=== PATIENT | female | born 1940 | race Caucasian/White ===

== ENCOUNTER → 2023-02-17 10:06 | Outpatient (REF) | payer OTHER, SELFPAY | LOC: WOUND 10:06 | PROVIDERS: ATTENDING PHYSICIAN Surgery; REFERRING PHYSICIAN Student in an Organized Health Care Education/Training Program | DX: I87.312 Chronic venous hypertension (idiopathic) with ulcer of left lower extremity (principal); L97.822 Non-pressure chronic ulcer of other part of left lower leg with fat layer exposed; I87.2 Venous insufficiency (chronic) (peripheral); I73.9 Peripheral vascular disease, unspecified; I48.0 Paroxysmal atrial fibrillation; Z79.01 Long term (current) use of anticoagulants; R26.2 Difficulty in walking, not elsewhere classified; R33.9 Retention of urine, unspecified | CPT/HCPCS: 11042; 11045; 99202; 99204 ==

== ENCOUNTER 2023-11-28 14:14 | Observation (INO) | payer OTHER, SELFPAY ==
--- NOTE | 2023-11-27 15:58 | ED.GENMED ---
History of Present Illness
<Carie Silvestre PA-C - Last Filed: 11/30/23 12:17>
General
Chief Complaint: Musculo-Skeletal Complaint
Source: patient
Exam Limitations: none
Time Seen by Provider: 11/27/23 15:56
Nursing documentation reviewed up to this point in time: agreed with
Travel History
Have you had any contact with someone who has COVID-19?: No
Do you have any symptoms of coronavirus? Fever > 100 degrees, chills, cough, shortness of breath, sore throat, loss of taste or smell, muscle aches, or headache?: No
History of Present Illness
History of Present Illness:
83-year-old female with past medical history of A-fib on Eliquis, hypertension, hyperlipidemia presenting to the emergency department today with hematuria, left knee pain and left shoulder pain. Patient states that she has had left knee pain left
shoulder pain for the past few weeks that is gotten so bad that she can barely walk without significant pain. She walks with a walker at baseline but today she had to be escorted on a wheelchair into the ER. Patient denies a hx of falls or trauma.
Patient and daughter states that they were going to follow-up with their family doctor with these concerns however last night, she started develop hematuria which ultimately prompted her ER visit today. Daughter states that when she was emptying
patients bedpain, she noticed bright red blood. She also noticed a few dark bloody spots on her underwear but she denies dysuria, abdominal pain, flank pain, fevers or chills, nausea or vomiting. Denies vaginal pain. She never had anything like this
before.
Past History
<Carie Silvestre PA-C - Last Filed: 11/30/23 12:17>
Past History
ED Past Medical History: Arrthythmia, GERD, HTN, Hypothyroidism and Other
ED Past Surgical History: None
Patient has exhibited threatening behavior?: No
PSI?: No
Social History
Tobacco: Former smoker
Alcohol: None
Drug: None
Living: with family ([place] [facility] since recent admission)
Review of Systems
<Carie Silvestre PA-C - Last Filed: 11/30/23 12:17>
Review of Systems
All Other Systems: ROS reviewed and negative except as documented in HPI and ROS
Phy Exam
<Carie Silvestre PA-C - Last Filed: 11/30/23 12:17>
Physical Exam
Physical Exam:
General: Patient is well appearing and in no acute distress; non-toxic
Skin: Warm and dry, no rashes or lesions
Head: Normocephalic, atraumatic
Eyes: Sclera non-icteric. EOMs intact.
Cardiac: Regular rate and rhythm, no murmurs
Peripheral Vascular: B/l lower extremity edema
Pulm: Normal respiratory effort
Abdomen: No abdominal tenderness, no palpable masses.
Musculoskeletal: Left knee swelling, left knee pain with passive range of motion. No left shoulder tenderness to palpation. Left shoulder pain with abduction. No palpable deformities.
Neuro: CN II-XII intact, no focal neurologic deficits.
Psychiatric: Appropriate mood and affect.
Course
<Carie Slivestre PA-C - Last Filed: 11/30/23 12:17>
Orders/Labs/Results
Orders:
Orders
11/27/23 16:24
CT Abd/pel Without Iv Or Oral Urgent
Comment:
Reason For Exam: gross hematuria
Acetaminophen [Tylenol] 650 mg PO NOW STA
CR Knee - Left 1 Or 2 Views Urgent
Comment:
Reason For Exam: left knee pain
CR Shoulder, Trauma - Left Urgent
Reason For Exam: left shoulder pain
11/27/23 16:30
Complete Blood Count/With Diff Urgent
Comprehensive Metabolic Panel Urgent
11/27/23 19:42
Urinalysis Reflex To Culture Urgent
Date Specimen was Collected: 11/27/23
Time Specimen was Collected: 19:41
Urine Culture Urgent
EULALIA Source: U
Specimen Description:
Date Specimen was Collected: 11/27/23
Time Specimen was Collected: 19:41
11/27/23 20:13
Acetaminophen [Tylenol] 650 mg .ROUTE .STK-MED ONE
11/27/23 20:46
Cefdinir [Omnicef] 300 mg PO NOW STA
Furosemide [Lasix] 40 mg PO NOW STA
11/27/23 20:56
Case Management Consult ONCE
Case Management Consult: VN/Home Care
11/28/23 Breakfast
Cholesterol Lowering
At Your Request: Full Participation
Does patient need a safe tray?: No
Cholesterol Lowering: Sodium, 2 Gram
11/28/23 07:06
PT Consult [Pt Eval And Treat] Urgent
Activity Level: Ambulate
11/28/23 08:53
Apixaban [Eliquis] 2.5 mg PO NOW STA
Furosemide [Lasix] 40 mg PO NOW STA
Metoprolol [Lopressor] 25 mg PO NOW STA
11/28/23 08:59
Cefdinir [Omnicef] 300 mg PO NOW STA
11/28/23 13:45
Admit/Transfer Patient As Directed
Co-Sign Provider:
Level of Care: Observation services
Assign to:: Medical/Surgical
Physician / Group: pasricha/medicine
Diagnosis: uti, ambulatory dysfunction
11/28/23 13:47
Code Status As Directed
Resuscitation Status: Full Code
11/28/23 18:14
Bisacodyl [Dulcolax] 10 mg RECTAL [id number] PRN
Docusate W/Senna [Senokot-S] 1 tablet PO BIDPRN PRN
Escitalopram Oxalate [Lexapro] 5 mg PO HSPRN PRN
Ibuprofen [Motrin] 400 mg PO BIDPRN PRN
Loratadine [Claritin] 10 mg PO DAILY PRN
Polyethylene Glycol Powder [Miralax] 17 grams PO DAILYPRN PRN
11/28/23 18:14
Activity As Directed
Activity Level: As Tolerated
Pneumatic Compression Sleeves As Directed
Type: Knee high
Vital Signs As Directed
Frequency: Per unit guidelines
Ot Eval And Treat Routine
DX Deep Vein Thrombosis Video Routine
11/28/23 20:00
Acetaminophen [Tylenol] 1,000 mg PO BID
Apixaban [Eliquis] 2.5 mg PO BID
CefTRIAXone [Rocephin] 1,000 mg IV Q24H
Docusate Sodium [Colace] 100 mg PO BID
Furosemide [Lasix] 40 mg PO BID
11/29/23 06:00
Levothyroxine [Synthroid] 25 mcg PO DAILY@0600
11/29/23 06:40
Complete Blood Count/No Diff IN AM
Comprehensive Metabolic Panel IN AM
TSH IN AM
11/29/23 08:00
Atorvastatin [Lipitor] 10 mg PO DAILY
Escitalopram Oxalate [Lexapro] 5 mg PO DAILY
Metoprolol [Lopressor] 25 mg PO DAILY
Multivitamin [Theragran] 1 tablet PO DAILY
Pantoprazole [Protonix] 20 mg PO DAILY
Abnormal Lab Results
11/27/23 11/27/23
16:30 19:42
Hgb 10.7 L g/dL
(12.0-16.0)
Hct 33.7 L %
(37.0-47.0)
MCV 77.6 L fL
(81.0-99.0)
MCH 24.7 L pg
(27.0-31.0)
MCHC 31.8 L g/dL
(33.0-37.0)
RDW 15.7 H %
(11.5-14.5)
Chloride 111 H mmol/L
(98-107)
Carbon Dioxide 19 L mmol/L
(22-30)
BUN 24 H mg/dl
(7-17)
Glucose 132 H mg/dl
(70-99)
Total Protein 6.1 L g/dl
(6.3-8.2)
Albumin 3.2 L g/dl
(3.5-5.0)
Ur Occult Blood Reflex 4+ A
(Negative)
Urine Nitrite (Reflex) Positive A
(Negative)
Leukocyte Esterase Rfl 1+ A
(Negative)
Urine Albumin (Reflex) 1+ A
(Neg - Trace)
11/27/23 16:30
11/27/23 16:30
Vital Signs
Initial and Last Documented VS:
Initial Vital Signs
Temp Pulse Resp Pulse Ox
98.1 F 96 20 99
11/27/23 14:55 11/27/23 14:55 11/27/23 14:55 11/27/23 14:55
Last Documented Vital Signs
Temp Pulse Resp BP Pulse Ox
97.8 F 82 17 121/76 98
11/30/23 07:30 11/30/23 07:30 11/30/23 07:30 11/30/23 08:32 11/30/23 07:30
<Georgi Avalos MD - Last Filed: 11/28/23 10:30>
Orders/Labs/Results
Orders:
Orders
11/27/23 16:24
CT Abd/pel Without Iv Or Oral Urgent
Comment:
Reason For Exam: gross hematuria
Acetaminophen [Tylenol] 650 mg PO NOW STA
CR Knee - Left 1 Or 2 Views Urgent
Comment:
Reason For Exam: left knee pain
CR Shoulder, Trauma - Left Urgent
Reason For Exam: left shoulder pain
11/27/23 16:30
Complete Blood Count/With Diff Urgent
Comprehensive Metabolic Panel Urgent
11/27/23 19:42
Urinalysis Reflex To Culture Urgent
Date Specimen was Collected: 11/27/23
Time Specimen was Collected: 19:41
Urine Culture Urgent
EULALIA Source: U
Specimen Description:
Date Specimen was Collected: 11/27/23
Time Specimen was Collected: 19:41
11/27/23 20:13
Acetaminophen [Tylenol] 650 mg .ROUTE .STK-MED ONE
11/27/23 20:46
Cefdinir [Omnicef] 300 mg PO NOW STA
Furosemide [Lasix] 40 mg PO NOW STA
11/27/23 20:56
Case Management Consult ONCE
Case Management Consult: VN/Home Care
11/28/23 Breakfast
Cholesterol Lowering
At Your Request: Full Participation
Does patient need a safe tray?: No
Cholesterol Lowering: Sodium, 2 Gram
11/28/23 07:06
PT Consult [Pt Eval And Treat] Urgent
Activity Level: Ambulate
11/28/23 08:53
Apixaban [Eliquis] 2.5 mg PO NOW STA
Furosemide [Lasix] 40 mg PO NOW STA
Metoprolol [Lopressor] 25 mg PO NOW STA
11/28/23 08:59
Cefdinir [Omnicef] 300 mg PO NOW STA
11/28/23 13:45
Admit/Transfer Patient As Directed
Co-Sign Provider:
Level of Care: Observation services
Assign to:: Medical/Surgical
Physician / Group: pasricha/medicine
Diagnosis: uti, ambulatory dysfunction
11/28/23 13:47
Code Status As Directed
Resuscitation Status: Full Code
11/28/23 18:14
Bisacodyl [Dulcolax] 10 mg RECTAL [id number] PRN
Docusate W/Senna [Senokot-S] 1 tablet PO BIDPRN PRN
Escitalopram Oxalate [Lexapro] 5 mg PO HSPRN PRN
Ibuprofen [Motrin] 400 mg PO BIDPRN PRN
Loratadine [Claritin] 10 mg PO DAILY PRN
Polyethylene Glycol Powder [Miralax] 17 grams PO DAILYPRN PRN
11/28/23 18:14
Activity As Directed
Activity Level: As Tolerated
Pneumatic Compression Sleeves As Directed
Type: Knee high
Vital Signs As Directed
Frequency: Per unit guidelines
Ot Eval And Treat Routine
DX Deep Vein Thrombosis Video Routine
11/28/23 20:00
Acetaminophen [Tylenol] 1,000 mg PO BID
Apixaban [Eliquis] 2.5 mg PO BID
CefTRIAXone [Rocephin] 1,000 mg IV Q24H
Docusate Sodium [Colace] 100 mg PO BID
Furosemide [Lasix] 40 mg PO BID
11/29/23 06:00
Levothyroxine [Synthroid] 25 mcg PO DAILY@0600
11/29/23 06:40
Complete Blood Count/No Diff IN AM
Comprehensive Metabolic Panel IN AM
TSH IN AM
11/29/23 08:00
Atorvastatin [Lipitor] 10 mg PO DAILY
Escitalopram Oxalate [Lexapro] 5 mg PO DAILY
Metoprolol [Lopressor] 25 mg PO DAILY
Multivitamin [Theragran] 1 tablet PO DAILY
Pantoprazole [Protonix] 20 mg PO DAILY
Abnormal Lab Results
11/27/23 11/27/23
16:30 19:42
Hgb 10.7 L g/dL
(12.0-16.0)
Hct 33.7 L %
(37.0-47.0)
MCV 77.6 L fL
(81.0-99.0)
MCH 24.7 L pg
(27.0-31.0)
MCHC 31.8 L g/dL
(33.0-37.0)
RDW 15.7 H %
(11.5-14.5)
Chloride 111 H mmol/L
(98-107)
Carbon Dioxide 19 L mmol/L
(22-30)
BUN 24 H mg/dl
(7-17)
Glucose 132 H mg/dl
(70-99)
Total Protein 6.1 L g/dl
(6.3-8.2)
Albumin 3.2 L g/dl
(3.5-5.0)
Ur Occult Blood Reflex 4+ A
(Negative)
Urine Nitrite (Reflex) Positive A
(Negative)
Leukocyte Esterase Rfl 1+ A
(Negative)
Urine Albumin (Reflex) 1+ A
(Neg - Trace)
11/27/23 16:30
11/27/23 16:30
Vital Signs
Initial and Last Documented VS:
Initial Vital Signs
Temp Pulse Resp Pulse Ox
98.1 F 96 20 99
11/27/23 14:55 11/27/23 14:55 11/27/23 14:55 11/27/23 14:55
Last Documented Vital Signs
Temp Pulse Resp BP Pulse Ox
97.8 F 82 17 121/76 98
11/30/23 07:30 11/30/23 07:30 11/30/23 07:30 11/30/23 08:32 11/30/23 07:30
Rileylt;Carie Silvestre PA-C - Last Filed: 11/30/23 12:17>
MDM/Problems Addressed
Differential Diagnosis Includes:
Eliquis side effect, hemorrhagic cystitis, nephrolithiasis, bladder carcinoma, renal carcinoma, ureteral stricture, bladder stone,
MDM/Problems Addressed:
hematuria
left shoulder and left knee pain
Chronic conditions affecting care:
A-fib on Eliquis, hypertension, hyperlipidemia, GERD, hypothyroidism,
Acute Exacerbation and/or Progression of Chronic Illness:
A-fib on Eliquis, hypertension, hyperlipidemia, GERD, hypothyroidism,
<Carie Silvestre PA-C - Last Filed: 11/30/23 12:17>
*Critical Care Note
Total Time (30-74mins, 75-104mins- exclusive of procedures): Not Applicable
<Georgi Avalos MD - Last Filed: 11/28/23 10:30>
*Radiology
Radiology exam reviewed: radiology read reviewed (No acute pathology on CT incidental hiatal hernia. X-rays with DJD and left knee effusion)
*Pulse Oximetry
Patient hypoxic: no
<Carie Silvestre PA-C - Last Filed: 11/30/23 12:17>
Patient Management
Escalation/DeEscalation of care consider admission/obs:
Please see attending note
<Georgi Avalos MD - Last Filed: 11/28/23 10:30>
Update Note
Update Note:
Patient has multiple issues. UTI hemorrhagic. Stable nontoxic no fever no white count. Outpatient management for UTI.
Left knee pain and swelling with effusion. Very low clinical suspicion for septic arthritis no warmth no erythema no white count no fever. No indication for arthrocentesis. Symptomatic treatment and orthopedic follow-up
Chronic leg edema bilaterally. There is some confusion as to whether she is still supposed to be on Lasix. June 10 she was discharged on 40 mg twice daily. She states she ran out but does not think she was supposed to stop it. Will restart
at 40 daily with follow-up with her primary and nephrology
ADL issues. Staying with family cannot ambulate across the house. Will hold overnight have case management evaluate for help in the morning as an outpatient
1030 11/27... Seen by case management and physical therapy. Patient needs a SNF. Unable to obtain today. Will be admitted medically.
ED Attending Note
<Carie Silvestre PA-C - Last Filed: 11/30/23 12:17>
-
Portions of this chart may have been created with voice recognition software.� Occasional wrong word or��sound alike� substitutions may have occurred due to the inherent limitations of voice recognition software.
<Georgi Avalos MD - Last Filed: 11/28/23 10:30>
ED Attending Note
Patient seen and examined by attending physician: Yes
I performed the substantive portion of visit, reviewed & personally made and approve the management plan that is documented in note by myself or JOSELITO.: Yes
ED Attending Note:
83-year-old female complaining of hematuria. Also complaining of left elbow and left knee pain that been going on a while. No trauma. No dysuria or frequency. Some mild chills yesterday. No fever. No flank or back pain. No shortness of breath
or other complaints
On exam patient is nontoxic in no distress. Lungs are clear and equal. Heart regular rate and rhythm no murmur. Abdomen nontender. She has bilateral pitting edema left greater than right. Some pain with knee flexion. No warmth or erythema. No
obvious deformity swelling to the left elbow with no point tenderness.
Impression hematuria with incidental DJD issues with the left elbow and left knee. Nothing to suspect septic arthritis. Edema appears chronic bilateral. Patient is on thinners. Highly doubt DVT. Workup in progress
Discharge Plan
Departure
Patient Disposition: Admit
Date of Disposition: 11/27/23
Time of Disposition: 20:50
Presentation/result/management discussed w/ accepting MD/DO: Hospitalist
Patient with high blood pressure during this ER visit?: Yes
Discharge Problem:
Hemorrhagic UTI, Peripheral edema, Left knee effusion, Chronic arthritis, Chronic anemia
Interventions
Interventions:
*Risk Screen - Suicide Last Done: 11/28/23 20:30
*General Assessment Last Done: 11/27/23 16:32
*Neglect/Abuse Screening Last Done: 11/27/23 16:32
ED- Fall Risk Assessment Last Done: 11/28/23 20:00
*ED COVID-19 Vaccine History Last Done: 11/28/23 20:30
*Nursing Disposition Last Done: 11/28/23 20:00
ED-Musculoskeletal Assessment Last Done: 11/27/23 18:21
Discharge Date and Time
Discharge Date/Time: 11/28/23 20:09
[2023-11-27] MEDS: TYLENOL 650 MG PO (16:29)
[2023-11-27 16:31] VITALS: BP 104/58
[2023-11-27 16:36] LABS: % Basophils 0.6 % (0-2); % Eosinophils 0.9 % (0-6); % Immature Granulocytes 0.3 % (0-0.5); % Lymphocytes 22.2 % (20.5-51.1); % Monocytes 5.1 % (1.7-9.3); % Neutrophils 70.9 % (42.2-75.2); Absolute Basophils 0.1 10^3/uL (0-0.2); Absolute Eosinophils 0.1 10^3/uL (0-0.7); Absolute Monocytes 0.5 10^3/uL (0.1-0.6); Absolute Neutrophils 6.4 10^3/uL (1.4-6.5); Hematocrit 33.7 % (37.0-47.0); Hemoglobin 10.7 g/dL (12.0-16.0); Mean Corp Hgb Conc. 31.8 g/dL (33.0-37.0); Mean Corpuscular Hgb 24.7 pg (27.0-31.0); Mean Corpuscular Volume 77.6 fL (81.0-99.0); Mean Platelet Volume 9.7 fL (7.4-10.4); Nucleated Red Blood Cells % 0 %; Platelet Count 233 10^3/uL (130-400); Red Blood Cell Count 4.34 10^6/uL (4.20-5.40); Red Cell Dist. Width 15.7 % (11.5-14.5)
[2023-11-27 16:48] LABS: ALT (SGPT) 11 U/L (0-35); AST (SGOT) 17 U/L (14-36); Albumin 3.2 g/dl (3.5-5.0); Alkaline Phosphatase 110 U/L (38-126); Blood Urea Nitrogen 24 mg/dl (7-17); Carbon Dioxide 19 mmol/L (22-30); Chloride 111 mmol/L (98-107); Glucose 132 mg/dl (70-99); Potassium 4.3 mmol/L (3.5-5.1); Sodium 140 mmol/L (135-145); Total Bilirubin 1.3 mg/dl (0.2-1.3); Total Protein 6.1 g/dl (6.3-8.2); eGFR 55.55
[2023-11-27 19:37] VITALS: BP 131/78
[2023-11-27 20:10] LABS: Urine Albumin 1+ (Neg - Trace); Urine Bilirubin Negative (Negative); Urine Character Slightly Cloudy (Clear); Urine Color Yellow; Urine Glucose Negative (Negative); Urine Ketone Negative (Negative); Urine Leukocyte 1+ (Negative); Urine Nitrite Positive (Negative); Urine Occult Blood 4+ (Negative); Urine Urobilinogen Negative (Neg - 1+)
[2023-11-27] MEDS: LASIX 40 MG PO (21:10)
[2023-11-27] MEDS: OMNICEF 300 MG PO (21:10)
[2023-11-27 22:00] VITALS: BP 128/60
[2023-11-27 23:00] VITALS: BP 114/59
[2023-11-28 08:31] VITALS: BP 136/91; PULSE 67; O2SAT 98
--- NOTE | 2023-11-28 10:01 | CM ---
Addendum entered by Jb Dickens 11/28/23 15:48:
OBS level of admission noted.
CM met with pt again, Pt's daughter, son in law Armando and granddaughter at bedside. OBS status explained to the pt and her family, STUART letter signed, placed in CM binder, pt has a copy.
D/C plan: preferred SNF.
CM will follow to assist pt with discharge to a preferred SNF.
Original Note:
CM following re: discharge planning.
CM consult to assist pt with setting up VN services. PT recommends SNF.
Reviewed pt's chart, met with pt and pt's son in law Armando at bedside.
Pt is an 83b year old female, arrived to ED with primary concerns of Musculo-Skeletal Complaint.
Pt reports she lives with son in a 2SH, 5 steps to enter, has 2 supportive children. Per son in law, pt's son now in a rehab facility and he will stay there for at least 2-3 weeks. Per son in law if pt can come home she will go to his house located
at [address] [place] [address]. Per son in law pt usually ambulates with a walker with assistance, has a wheelchair
PT evaluations noted - SNF level of care strongly recommended, pt requires max assistance with standing. CM discussed it with pt and her son in law, they expressed their agreement with recommendation. A list pf SNFs provided to the pt and son-in
law. Following SNFs preferred: [facility], [facility] and/or [facility]. A referral to above SNFs made. Awaiting for determination. Pt will need an auth from [facility] that manages [employer].
is aware and pt probably will be admitted for OBS to assist with placement to a preferred SNF for a short term rehab.
PCP: Makayla Morales
Pharmacy: [facility]
D/C plan: preferred SNF.
CM will follow to assist pt with discharge to a preferred SNF.
[2023-11-28 10:20] VITALS: BP 115/61
[2023-11-28] MEDS: LASIX 40 MG PO ×2 (10:23→20:51)
[2023-11-28] MEDS: LOPRESSOR 25 MG PO (10:24)
[2023-11-28] MEDS: ELIQUIS 2.5 MG PO ×2 (10:24→20:52)
[2023-11-28] MEDS: OMNICEF 300 MG PO (10:25)
--- NOTE | 2023-11-28 13:49 | HPS.HSE ---
Family Physician
-
Family Physician: Antionette Morales,
Chief Complaint
-
Hematuria, left knee and shoulder pain, amatory dysfunction
History of Present Illness
83-year-old female with past medical history of A-fib on Eliquis, hypertension, hyperlipidemia now presents for hematuria, also noted to have left knee pain as well as left shoulder pain. Muscle skeletal pain has been chronic for the last few weeks
and has subsequently caused him to dysfunction due to pain. Patient does walk with a walker at baseline, motivated to be escorted over to chair. Also noted to have hematuria which prompted hospital visit. Noticed blood in the urine by daughter.
Also noticed few dark bloody spots on underwear although denies dysuria, abdominal pain, suprapubic tenderness, flank pain, fever, chills, nausea, vomiting. No vaginal bleeding noted. Also noted to have left knee swelling with no tenderness,
passive range of motion, although no left shoulder tenderness to palpation nor tenderness. Also noted to have bilateral lower extremity edema -has ran out of Lasix with no refill. Otherwise normotensive, heart rate 87, respiratory rate 19. UA
positive. Left knee noted to have overall moderate tricompartmental osteoarthritis, moderate suprapatellar joint effusion. Osteoarthritis on shoulder.
Medical History
Past Medical History
Past Medical History: Reports Other (atrial fibrillation, C. difficile, hyperlipidemia, hypothyroidism, urinary retention, GERD,)
Past Surgical History: Reports None
Social History
Tobacco: Former Smoker
Alcohol: None
Drug: None
Family History
Family History: Not pertinent
Allergies / Home Medications
Allergies reflects when Allergies were last updated in [employer].
Home Medications with original date entered in [employer]
Allergy/Medication List:
Allergies
Allergy/AdvReac Type Severity Reaction Status Date / Time
No Known Allergies Allergy Verified 11/27/23 14:54
Home Medications
levothyroxine 25 mcg tablet 25 mcg PO DAILY Thyroid 30 days #30 tabs 12/24/22
apixaban 2.5 mg tablet (Eliquis) 2.5 mg PO BID Blood Clot Prevention/Tx 06/02/23
docusate sodium 100 mg capsule 100 mg PO BID #0 caps 06/16/23
acetaminophen 500 mg tablet (Tylenol Extra Strength) 1,000 mg PO BID 11/28/23
atorvastatin 10 mg tablet 10 mg PO DAILY High cholesterol 11/28/23
escitalopram oxalate 5 mg tablet 5 mg PO DAILY 11/28/23
escitalopram oxalate 5 mg tablet 5 mg PO HSPRN PRN anxiety 11/28/23
furosemide 40 mg tablet 40 mg PO BID Heart disease/condition 11/28/23
ibuprofen 200 mg tablet (Advil) 400 mg PO BIDPRN PRN mild pain 11/28/23
loratadine 10 mg tablet (Claritin) 10 mg PO DAILY PRN allergies 11/28/23
metoprolol tartrate 25 mg tablet 25 mg PO DAILY Arrhythmia 11/28/23
pantoprazole 20 mg tablet,delayed release 20 mg PO DAILY 11/28/23
therapeutic multivitamin 1 tab PO DAILY 11/28/23
Review of Systems
-
History Source: Patient
A 12 point ROS was completed and negative except as noted: Yes
Constitutional: Reports No Symptoms
EENT: Reports No Symptoms
Respiratory: Reports See HPI
Cardiac: Reports No Symptoms
Abdomen/GI: Reports No Symptoms
: Reports No Symptoms
Musculoskeletal: Reports No Symptoms
Skin: Reports No Symptoms
Neurological: Reports No Symptoms
Endocrine: Reports No Symptoms
Hematologic/Lymphatic: Reports No Symptoms
Psych: Reports No Symptoms
Physical Exam
Vital Signs
Vital Signs
Temp Pulse Resp BP Pulse Ox
98.1 F 87 19 115/61 96
11/27/23 14:55 11/28/23 10:24 11/28/23 10:20 11/28/23 10:24 11/28/23 10:20
Physical Exam
General: Well Developed, Well Nourished and No Apparent Distress
HEENT: NormoCephalic
Respiratory: Clear
Cardiac: S1/S2
GI: Soft and Non Tender
Musculoskeletal: Other (b/l le edema, left knee swelling - no erythema or tenderness)
Skin: Warm
Neuro: Awake, Alert, Oriented and AO x 3
Psych: Calm
Laboratory Results
-
11/27/23 16:30
11/27/23 16:30
Laboratory Results
Total Bilirubin 1.3 mg/dl (0.2-1.3) 11/27/23 16:30
AST 17 U/L (14-36) 11/27/23 16:30
ALT 11 U/L (0-35) 11/27/23 16:30
Alkaline Phosphatase 110 U/L (38-126) 11/27/23 16:30
Data Reviewed
-
Diagnostic Radiology: Image Personally Visualized and interpreted and Report Reviewed by me
Lab Data: Labs Reviewed by me
Impression/Plan
-
IMPRESSION:
83-year-old female with past medical history of A-fib on Eliquis, hypertension, hyperlipidemia now presents for hematuria, also noted to have left knee pain as well as left shoulder pain. Found to also have hematuria, indicative of UTI.
PLAN:
#Hematuria
#UTI
-continue ceftriaxone
-F/u cultures
-omn obvious evidence of vaginal bleeding at this time but would monitor closely
-cont eliquis for now although monitor cbc
-IF continued hematuria - may need urology on board
#Left Knee swelling, moderate suprapatellar joint effusion
#Left shoulder pain, severe glenohumeral joint osteoarthritis
� Will need follow-up with orthopedics outpatient
� No evidence of infection, signs of septic arthritis as non tender, no elevated WBC, afebrile
�PT/OT�will require SNF
#Lower extremity edema
� Non Compliant - Stopped taking Lasix, and was close p.o. twice daily dosing although only took once a day
-Resume Lasix dose
-F/u PCP, nephro, cards outpatient
#HFpEF:
resume lasix
Other problems:
Persistent atrial fibrillation: Cont Eliquis/BB
HLD: cont statin
Hypothyroidism: Continue Levoxyl
Seasonal Allergies: cont Singulair
Moderate Hiatal hernia
GERD: start PPI
h/o Gallstones
h/o urinary retention
Duodenal diverticulum
FULL/Eliquis
Dispo - SNF - CM aware
[2023-11-28 20:27] VITALS: BP 144/69; BMI 28.9
[2023-11-28] MEDS: ROCEPHIN 1000 MG IV (20:50)
[2023-11-28] MEDS: STERILE WATER FOR INJECTION 10 ML IV (20:50)
[2023-11-28] MEDS: COLACE PO (20:51)
[2023-11-28] MEDS: TYLENOL 1000 MG PO (20:52)
--- NOTE | 2023-11-28 22:16 | PTCARENOTE ---
Patient arrived to unit via stretcher around 20:30 with diagnosis of UTI/ Ambulatory dysfunction. Pleasant. AAOX3. Educated on using call thompson. Call thompson within reach. Oriented to unit.
[2023-11-28 22:35] VITALS: BMI 28.9
[2023-11-28 23:00] VITALS: BP 133/67
--- NOTE | 2023-11-29 05:53 | W.PN.HOSP.TC ---
Today's Communication/Plan
-
Monitor renal function
minimize/avoid nephrotoxic agent use as possible
cont abx for now
monitor H&H
cont Eliquis
PT/OT
pain control
Assessment / Plan
Assessment / Plan
Physical Exam
General: No acute distress, appears comfortable at this time.
HEENT: NormoCephalic Atraumatic PERRLA
Respiratory: Clear to auscultation b/l no wheezes crackles
Cardiac: S1/S2
GI: Soft and Non Tender
Musculoskeletal: b/l knee swelling no tenderness erythema
Skin: Warm
Neuro: Awake, Alert, Oriented and AO x 3
Psych: Calm
83-year-old female with past medical history of A-fib on Eliquis, hypertension, hyperlipidemia now presents for hematuria, also noted to have left knee pain as well as left shoulder pain. Found to also have hematuria, indicative of UTI.
PLAN:
#Hematuria
#UTI
-Monitor H&H
-continue ceftriaxone
-Follows cultures
-denies vaginal bleeding
-cont Eliquis, monitor cbc, potential increased from renal dosing 2.5 to 5 mg BID if Cr remains stable <1.5
-Hematuria since resolved
#Arthritis
#Left Knee swelling, moderate suprapatellar joint effusion noted on Knee X-ray
#Left shoulder pain, severe glenohumeral joint osteoarthritis noted on shoulder X-ray
� Will need follow-up with orthopedics outpatient
� No evidence of infection, signs of septic arthritis as non tender, no elevated WBC, afebrile
�PT/OT appreciated SNF rehab
-pain control scheduled Tylenol 1000 mg TID, prn Tramadol moderate severe pain
#Lower extremity edema
� Non Compliant - Stopped taking Lasix, was prescribed p.o. twice daily dosing although only took once a day
-Lasix resumed
-F/u PCP, nephro, cards outpatient
#HFpEF
Stable respiratory status
Home Lasix continued
#CKD III
possible baseline Cr 1.0-1.3
monitor renal function
avoid/minimize nephrotoxic medication use as possible
Other problems:
Persistent atrial fibrillation: Cont Eliquis/BB
HLD: cont statin
Hypothyroidism: Continue Levoxyl
Seasonal Allergies: cont Singulair
Moderate Hiatal hernia
GERD: start PPI
h/o Gallstones
h/o urinary retention
Duodenal diverticulum
FULL/Eliquis
Dispo - SNF
discussed with patient and her granddaughter Lianne at bedside
I spent a total of 50 minutes with the patient or on the floor. More than 50% of this time involved counseling and coordination of care.
Anticipated Discharge: 24 - 48 hours
Subjective/Interval History
-
Date of Service: November 29, 2023
Seen and examined at bedside in no acute distress sitting up comfortably in chair. Continues to report joint pain, Left shoulder and b/l knees. Denies new acute issues at this time. Granddaughter Lianne present during evaluation.
Objective Data
-
Labs:
Laboratory Results
11/29/23
06:00
WBC Pending
Hgb Pending
Hct Pending
Plt Count Pending
Sodium Pending
Potassium Pending
Chloride Pending
Carbon Dioxide Pending
BUN Pending
Creatinine Pending
Glucose Pending
Calcium Pending
Total Bilirubin Pending
AST Pending
ALT Pending
Alkaline Phosphatase Pending
Vital Signs:
Vital Signs
Temp Pulse Resp BP Pulse Ox
98.7 F 95 16 133/67 96
11/28/23 23:00 11/28/23 23:00 11/28/23 23:00 11/28/23 23:00 11/28/23 23:00
[2023-11-29 06:00] VITALS: BMI 28.9
[2023-11-29] MEDS: SYNTHROID 25 MCG PO (06:29)
[2023-11-29 07:00] VITALS: BP 122/70
[2023-11-29 07:30] LABS: Hematocrit 36.6 % (37.0-47.0); Hemoglobin 11.4 g/dL (12.0-16.0); Mean Corp Hgb Conc. 31.1 g/dL (33.0-37.0); Mean Corpuscular Hgb 24.5 pg (27.0-31.0); Mean Corpuscular Volume 78.5 fL (81.0-99.0); Mean Platelet Volume 9.7 fL (7.4-10.4); Platelet Count 219 10^3/uL (130-400); Red Blood Cell Count 4.66 10^6/uL (4.20-5.40); Red Cell Dist. Width 15.8 % (11.5-14.5); White Blood Cell Count 7.3 10^3/uL (4.8-10.8)
[2023-11-29 08:02] LABS: ALT (SGPT) < 10 U/L (0-35); AST (SGOT) 15 U/L (14-36); Albumin 2.9 g/dl (3.5-5.0); Alkaline Phosphatase 98 U/L (38-126); Blood Urea Nitrogen 27 mg/dl (7-17); Calcium 8.8 mg/dl (8.4-10.2); Carbon Dioxide 24 mmol/L (22-30); Chloride 108 mmol/L (98-107); Estimated Creatinine Clearance 36 ml/min; Glucose 96 mg/dl (70-99); Potassium 3.8 mmol/L (3.5-5.1); Sodium 140 mmol/L (135-145); Total Bilirubin 0.8 mg/dl (0.2-1.3); Total Protein 5.7 g/dl (6.3-8.2); eGFR 40.55
[2023-11-29 08:23] LABS: TSH 4.22 uIU/ml (0.47-4.68)
[2023-11-29] MEDS: PROTONIX 20 MG PO (09:41)
[2023-11-29] MEDS: COLACE 100 MG PO ×2 (09:41→20:55)
[2023-11-29] MEDS: ELIQUIS 2.5 MG PO ×2 (09:41→20:55)
[2023-11-29] MEDS: LOPRESSOR 25 MG PO (09:41)
[2023-11-29] MEDS: LIPITOR 10 MG PO (09:41)
[2023-11-29] MEDS: LASIX 40 MG PO ×2 (09:42→20:55)
[2023-11-29] MEDS: THERAGRAN 1 TABLET PO (09:42)
[2023-11-29] MEDS: LEXAPRO 5 MG PO (09:42)
[2023-11-29] MEDS: TYLENOL 1000 MG PO ×3 (09:42→20:56)
--- NOTE | 2023-11-29 11:02 | CM ---
Patient seen bedside with family, discussed SNF referrals [facility] to [facility]. Patient will need OT documentation for SNF auth once bed confirmed. CM spoke with Fatemeh from [facility], [facility] out of network. CM will
continue to follow for discharge planning needs, awaiting to hear from [facility].
Plan; SNF pending accepting facility, will need auth.
[2023-11-29] MEDS: DESENEX/MITRAZOL/ZEASORB 1 APPLIC TOPICAL ×2 (11:15→21:01)
[2023-11-29 14:19] VITALS: BP 125/60; BP 92/58; O2SAT 95
[2023-11-29] MEDS: LIDOCAINE 4% PATCH 1 PATCH TOPICAL ×2 (14:33→14:34)
[2023-11-29 15:00] VITALS: BP 111/83
[2023-11-29] MEDS: ROCEPHIN 1000 MG IV (20:56)
[2023-11-29] MEDS: STERILE WATER FOR INJECTION 10 ML IV (20:56)
[2023-11-29 23:00] VITALS: BP 117/60
[2023-11-30 05:26] VITALS: BMI 28.9
[2023-11-30] MEDS: SYNTHROID 25 MCG PO (05:56)
[2023-11-30 07:30] VITALS: BP 121/76
--- NOTE | 2023-11-30 07:31 | W.PN.HOSP.TC ---
Today's Communication/Plan
-
Pain control
PT/OT
increased Eliquis
abx completed monitoring off
Discharge planning SNF rehab
Assessment / Plan
Assessment / Plan
Physical Exam
General: No acute distress, appears comfortable at this time.
HEENT: NormoCephalic Atraumatic PERRLA
Respiratory: Clear to auscultation b/l no wheezes crackles
Cardiac: S1/S2
GI: Soft and Non Tender
Musculoskeletal: b/l knee swelling no tenderness erythema
Skin: Warm
Neuro: Awake, Alert, Oriented and AO x 3
Psych: Calm
83-year-old female with past medical history of A-fib on Eliquis, hypertension, hyperlipidemia now presents for hematuria, also noted to have left knee pain as well as left shoulder pain. Found to also have hematuria, indicative of UTI.
PLAN:
#Hematuria resolved, not observed during hospitalization
#UTI less likely ruled out
-stable H&H
-urine culture no significant growth noted
-denies vaginal bleeding, dysuria, Hematuria since resolved
-Empiric Ceftriaxone discontinued, monitor off
#Arthritis
#Left Knee swelling, moderate suprapatellar joint effusion noted on Knee X-ray
#Left shoulder pain, severe glenohumeral joint osteoarthritis noted on shoulder X-ray
� Will need follow-up with orthopedics outpatient
� No evidence of infection, signs of septic arthritis as non tender, no elevated WBC, afebrile
�PT/OT appreciated SNF rehab
-pain control scheduled Tylenol 1000 mg TID, prn Tramadol moderate severe pain
#Lower extremity edema
� Non Compliant - Stopped taking Lasix, was prescribed p.o. twice daily dosing although only took once a day
-Lasix resumed
-F/u PCP, nephro, cards outpatient
#HFpEF
Stable respiratory status
Home Lasix continued
#CKD III
possible baseline Cr 1.0-1.3
monitor renal function
avoid/minimize nephrotoxic medication use as possible
Persistent atrial fibrillation: Cont Eliquis/BB
-Eliquis increased from 2.5 mg BID to 5 mg BID w/ stable renal function Cr consistently <1.5
Other problems:
HLD: cont statin
Hypothyroidism: Continue Levoxyl
Seasonal Allergies: cont Singulair
Moderate Hiatal hernia
GERD: start PPI
h/o Gallstones
h/o urinary retention
Duodenal diverticulum
FULL/Eliquis
Dispo - SNF
discussed with patient and her granddaughter Lianne at bedside
I spent a total of 50 minutes with the patient or on the floor. More than 50% of this time involved counseling and coordination of care.
Anticipated Discharge: 24 - 48 hours
Subjective/Interval History
-
Date of Service: November 30, 2023
Seen and examined at bedside in no acute distress sitting up comfortably in chair. Reports some improvement in pain. Denies new episode hematuria. Overall reports feeling well. Granddaughter Lianne present during evaluation.
Objective Data
-
Labs:
Laboratory Results
11/30/23
07:30
WBC Pending
Hgb Pending
Hct Pending
Plt Count Pending
Sodium Pending
Potassium Pending
Chloride Pending
Carbon Dioxide Pending
BUN Pending
Creatinine Pending
Glucose Pending
Calcium Pending
Vital Signs:
Vital Signs
Temp Pulse Resp BP Pulse Ox
97.4 F 82 16 117/60 97
11/29/23 23:00 11/29/23 23:00 11/29/23 23:00 11/29/23 23:00 11/29/23 23:00
I&O
11/29/23 11/30/23 12/01/23
06:59 06:59 06:59
Intake Total 1200 / 1200
Output Total 1600 / 1600
Balance -400 / -400
[2023-11-30 08:28] LABS: Hematocrit 37.6 % (37.0-47.0); Hemoglobin 11.8 g/dL (12.0-16.0); Mean Corp Hgb Conc. 31.4 g/dL (33.0-37.0); Mean Corpuscular Hgb 24.3 pg (27.0-31.0); Mean Corpuscular Volume 77.4 fL (81.0-99.0); Mean Platelet Volume 10.1 fL (7.4-10.4); Platelet Count 249 10^3/uL (130-400); Red Blood Cell Count 4.86 10^6/uL (4.20-5.40); Red Cell Dist. Width 15.6 % (11.5-14.5); White Blood Cell Count 9.3 10^3/uL (4.8-10.8)
[2023-11-30] MEDS: THERAGRAN 1 TABLET PO (08:32)
[2023-11-30] MEDS: LIPITOR 10 MG PO (08:32)
[2023-11-30] MEDS: LASIX 40 MG PO ×2 (08:32→19:56)
[2023-11-30] MEDS: ELIQUIS 2.5 MG PO (08:33)
[2023-11-30] MEDS: TYLENOL 1000 MG PO ×3 (08:33→19:56)
[2023-11-30] MEDS: PROTONIX 20 MG PO (08:33)
[2023-11-30] MEDS: LEXAPRO 5 MG PO (08:33)
[2023-11-30] MEDS: LOPRESSOR 25 MG PO (08:34)
[2023-11-30] MEDS: LIDOCAINE 4% PATCH 1 PATCH TOPICAL ×2 (08:34→08:35)
[2023-11-30] MEDS: COLACE 100 MG PO ×2 (08:34→19:56)
[2023-11-30] MEDS: DESENEX/MITRAZOL/ZEASORB 1 APPLIC TOPICAL ×2 (08:35→19:59)
[2023-11-30 09:10] LABS: Blood Urea Nitrogen 34 mg/dl (7-17); Calcium 8.9 mg/dl (8.4-10.2); Carbon Dioxide 24 mmol/L (22-30); Chloride 104 mmol/L (98-107); Estimated Creatinine Clearance 39 ml/min; Glucose 105 mg/dl (70-99); Magnesium 2.1 mg/dl (1.6-2.3); Phosphorus 4.5 mg/dl (2.5-4.5); Potassium 3.9 mmol/L (3.5-5.1); Sodium 140 mmol/L (135-145); eGFR 44.64
[2023-11-30 15:30] VITALS: BP 114/86
--- NOTE | 2023-11-30 16:08 | CM ---
Spoke with patient and granddaughter bedside.
Reviewed options.
Additional referrals to [facility].
Patient will need insurance auth.
Plan skilled rehab once bed available and auth obtained.
[2023-11-30] MEDS: ELIQUIS 5 MG PO (19:56)
[2023-11-30 23:41] VITALS: BP 122/68
--- NOTE | 2023-12-01 03:55 | DOWNTIME ---
There was a [employer] Client [employer] Downtime on 11/30/2023 from 0100 to 12/01/2023 at 0300. Downtime documentation of patient's care, including medication administrations, has been reconciled in the electronic record per guidelines. Refer to the
patient's paper chart under the miscellaneous tab to see printed paper medication records and downtime forms.
[2023-12-01] MEDS: SYNTHROID 25 MCG PO (06:23)
[2023-12-01 07:00] VITALS: BP 142/75
--- NOTE | 2023-12-01 07:08 | W.PN.HOSP.TC ---
Today's Communication/Plan
-
discharge
Assessment / Plan
Assessment / Plan
Physical Exam
General: No acute distress, appears comfortable at this time.
HEENT: NormoCephalic Atraumatic PERRLA
Respiratory: Clear to auscultation b/l no wheezes crackles
Cardiac: S1/S2
GI: Soft and Non Tender
Musculoskeletal: b/l knee swelling no tenderness erythema
Skin: Warm
Neuro: Awake, Alert, Oriented and AO x 3
Psych: Calm
83-year-old female with past medical history of A-fib on Eliquis, hypertension, hyperlipidemia now presents for hematuria, also noted to have left knee pain as well as left shoulder pain. Found to also have hematuria, indicative of UTI.
PLAN:
#Hematuria resolved, not observed during hospitalization
#UTI less likely ruled out
-stable H&H
-urine culture no significant growth noted
-denies vaginal bleeding, dysuria, Hematuria since resolved
-Empiric Ceftriaxone discontinued, monitor off
#Arthritis
#Left Knee swelling, moderate suprapatellar joint effusion noted on Knee X-ray
#Left shoulder pain, severe glenohumeral joint osteoarthritis noted on shoulder X-ray
� Outpatient orthopedic follow up recommended
�No evidence of infection, signs of septic arthritis as non tender, no elevated WBC, afebrile
�PT/OT appreciated SNF rehab
-pain control scheduled Tylenol 1000 mg TID will taper to BID on discharge, prn Tramadol moderate severe pain
#Lower extremity edema
� Non Compliant - Stopped taking Lasix, was prescribed p.o. twice daily dosing although only took once a day
-Lasix resumed
#HFpEF
Stable respiratory status
Home Lasix continued
#CKD III
possible baseline Cr 1.0-1.3
monitor renal function
avoid/minimize nephrotoxic medication use as possible
Persistent atrial fibrillation: Cont Eliquis/BB
-Eliquis increased from 2.5 mg BID to 5 mg BID w/ stable renal function Cr consistently <1.5
Other problems:
HLD: cont statin
Hypothyroidism: Continue Levoxyl
Seasonal Allergies: cont Singulair
Moderate Hiatal hernia
GERD: start PPI
h/o Gallstones
h/o urinary retention
Duodenal diverticulum
FULL/Eliquis
PT/OT appreciated SNF rehab
Medically stable for discharge SNF rehab with outpatient follow up recommendations.
discussed with patient, her granddaughter Lianne, and son-in-law Armando at bedside
Total Time Preparing Discharge ___55____ minutes including examination of the patient, summary of the hospital stay, instructions for continuing care to all relevant caregivers; and preparation of discharge records, prescriptions, and referral
forms if necessary.
Anticipated Discharge: Today
Subjective/Interval History
-
Date of Service: December 01, 2023
Seen and examined at bedside in no acute distress sitting up comfortably in bed. Denies new acute issues at this time. Reports overall feeling well. Pain well controlled at this time at rest. Granddaughter Lianne and Son-in-Law Armando present
during evaluation.
Objective Data
-
Labs:
Laboratory Results
12/01/23
06:00
WBC Pending
Hgb Pending
Hct Pending
Plt Count Pending
Sodium Pending
Potassium Pending
Chloride Pending
Carbon Dioxide Pending
BUN Pending
Creatinine Pending
Glucose Pending
Calcium Pending
Vital Signs:
Vital Signs
Temp Pulse Resp BP Pulse Ox
98.4 F 84 18 122/68 96
11/30/23 23:41 11/30/23 23:41 11/30/23 23:41 11/30/23 23:41 11/30/23 23:41
I&O
11/30/23 12/01/23 12/02/23
06:59 06:59 06:59
Intake Total 1200 / 1200 600 / 600
Output Total 1600 / 1600 400 / 400
Balance -400 / -400 200 / 200
[2023-12-01 07:45] LABS: Hematocrit 37.6 % (37.0-47.0); Hemoglobin 11.5 g/dL (12.0-16.0); Mean Corp Hgb Conc. 30.6 g/dL (33.0-37.0); Mean Corpuscular Hgb 24.2 pg (27.0-31.0); Mean Platelet Volume 10.2 fL (7.4-10.4); Platelet Count 256 10^3/uL (130-400); Red Blood Cell Count 4.76 10^6/uL (4.20-5.40); Red Cell Dist. Width 15.5 % (11.5-14.5); White Blood Cell Count 7.8 10^3/uL (4.8-10.8)
[2023-12-01] MEDS: LIPITOR 10 MG PO (08:06)
[2023-12-01] MEDS: LEXAPRO 5 MG PO (08:06)
[2023-12-01] MEDS: COLACE 100 MG PO (08:06)
[2023-12-01] MEDS: LOPRESSOR 25 MG PO (08:06)
[2023-12-01] MEDS: THERAGRAN 1 TABLET PO (08:06)
[2023-12-01] MEDS: TYLENOL 1000 MG PO (08:07)
[2023-12-01] MEDS: LASIX 40 MG PO (08:07)
[2023-12-01] MEDS: LIDOCAINE 4% PATCH 1 PATCH TOPICAL ×2 (08:07→08:08)
[2023-12-01] MEDS: ELIQUIS 5 MG PO (08:07)
[2023-12-01] MEDS: PROTONIX 20 MG PO (08:07)
[2023-12-01] MEDS: DESENEX/MITRAZOL/ZEASORB 1 APPLIC TOPICAL (08:08)
[2023-12-01 08:17] LABS: Blood Urea Nitrogen 39 mg/dl (7-17); Calcium 8.4 mg/dl (8.4-10.2); Carbon Dioxide 27 mmol/L (22-30); Chloride 106 mmol/L (98-107); Estimated Creatinine Clearance 36 ml/min; Glucose 102 mg/dl (70-99); Magnesium 2.2 mg/dl (1.6-2.3); Phosphorus 4.3 mg/dl (2.5-4.5); Potassium 3.9 mmol/L (3.5-5.1); Sodium 140 mmol/L (135-145); eGFR 40.55
--- NOTE | 2023-12-01 10:29 | CM ---
Addendum entered by Nicol Soliman 12/01/23 13:31:
Familty will transport patient.
Addendum entered by Nicol Soliman 12/01/23 11:56:
IMM completed.
[facility]
Report# [phone]

Original Note:
Patient accepted to [facility]
NPI#[id number] Dr [facility] NPI# [id number]
TC to [facility] [phone], referred to [facility] at [phone], spoke with Thad
Approved skilled rehab Start date today thru 12/05/23
Updates need to fax to [phone]
authorization # [id number]
--- NOTE | 2023-12-01 13:44 | W.DCSUMMARY ---
Discharge Summary
Discharge Data
Date of Admission: 11/28/23
Date of Discharge: 12/01/23
-
Pending Results: No
Hospital Course
83-year-old female with past medical history of A-fib on Eliquis, HFpEF, Hypothyroidism, hypertension, hyperlipidemia, CKDIII presented for hematuria, also noted to have left knee pain as well as left shoulder pain. Hematuria resolved, not observed
during hospitalization. UTI less likely ruled out. Stable H&H. Urine culture no significant growth noted. Denied vaginal bleeding, dysuria. Received empiric ceftriaxone which was soon discontinued. Arthritis, Left Knee swelling, moderate
suprapatellar joint effusion noted on Knee X-ray, Left shoulder pain, severe glenohumeral joint osteoarthritis noted on shoulder X-ray. Outpatient orthopedic follow up recommended. No evidence of infection or septic arthritis, non tender, no
elevated WBC, afebrile. PT/OT appreciated SNF rehab. Pain control scheduled Tylenol 1000 mg TID, tapered to BID on discharge, prn Tramadol moderate severe pain prescribed. Medically stable, patient was discharged to SNF rehab with outpatient
follow up recommendations.
Discharge Plan
-
Patient Disposition: Correction/SNF
Discharge Diagnosis/Procedures: Hematuria resolved, not observed during hospitalization
suspected Urinary Tract Infection ruled out
Severe Arthritis Knees
severe glenohumeral joint osteoarthritis noted on Left shoulder X-ray
Ambulatory Dysfunction
Heart Failure with Preserved Ejection Fraction
Chronic Kidney Disease Stage III
Persistent atrial fibrillation on Eliquis
Hyperlipidemia
Hypothyroidism
Seasonal Allergies
Moderate Hiatal hernia
GERD
Condition: Good
Diet: Low Cholesterol and 2 Gram Sodium
Activity: With assistance, As tolerated and With Walker
Driving Restrictions: No driving
Bathing Restrictions: None
Blood Work: Please repeat CBC and BMP with primary care provider in 1 week of discharge.
Other Services: PT and OT
Activity Restrictions/Additional Instructions:
Please follow up with primary care provider in 1 week of discharge and Orthopedic in 2-4 weeks of discharge.
levothyroxine 25 mcg tablet 25 mcg PO DAILY Hypothyroidism
docusate sodium 100 mg capsule 100 mg PO BID Constipation
acetaminophen 500 mg tablet (Tylenol Extra Strength) 1,000 mg PO BID Arthritis pain
atorvastatin 10 mg tablet 10 mg PO DAILY High cholesterol
escitalopram oxalate 5 mg tablet 5 mg PO DAILY Depression/anxiety
escitalopram oxalate 5 mg tablet 5 mg PO HSPRN PRN anxiety 11/28/23
furosemide 40 mg tablet 40 mg PO BID for Heart Failure and lower extremity edema
loratadine 10 mg tablet (Claritin) 10 mg PO DAILY PRN allergies
pantoprazole 20 mg tablet,delayed release 20 mg PO DAILY for GERD
therapeutic multivitamin 1 tab PO DAILY nutrition supplement
New/changed medications
apixaban 5 mg tablet (Eliquis) 5 mg PO BID for atrial fibrillation, dose increased from 2.5 mg to 5 mg BID with improvement in kidney function
lidocaine 4 % topical patch 1 patch topical DAILY Left knee arthritis pain
lidocaine 4 % topical patch 1 patch topical DAILY Right knee arthritis pain
metoprolol succinate 25 mg tablet,extended release 24 hr 25 mg PO DAILY for heart failure home medication changed from short acting to long acting
tramadol 50 mg tablet 25 mg (1/2 x 50 mg) PO BIDPRN PRN moderate severe pain
Ibuprofen discontinued due to chronic renal insufficiency and concern interaction with Eliquis
Please take medications as prescribed/recommended and follow up with primary care provider and/or other healthcare provider involved in your care for refills and/or further adjustments to your medication regimen as necessary.
Referrals:
Makayla Morales DO [Family Provider] - in one week
Meir Thomson MD [Active] - in two to four weeks
Prescriptions:
New
Eliquis 5 mg Tablet
5 mg PO BID 30 Days Qty: 60 0RF
lidocaine 4 % Adhesive Patch,Medicated
1 patch topical DAILY Qty: 15 0RF
lidocaine 4 % Adhesive Patch,Medicated
1 patch topical DAILY Qty: 15 0RF
metoprolol succinate 25 mg tablet extended release 24 hr
25 mg PO DAILY 30 Days Qty: 30 0RF
tramadol 25 mg tablet
25 mg PO BIDPRN PRN (Reason: moderate severe pain) 5 Days Qty: 10 0RF
Continued
levothyroxine 25 mcg Tablet
25 mcg PO DAILY 30 Days Qty: 30 0RF
docusate sodium 100 mg Capsule
100 mg PO BID Qty: 0 0RF
therapeutic multivitamin Tablet
1 tab PO DAILY
acetaminophen [Tylenol Extra Strength] 500 mg Tablet
1,000 mg PO BID
pantoprazole 20 mg Tablet,Delayed Release (Dr/Ec)
20 mg PO DAILY
escitalopram oxalate 5 mg Tablet
5 mg PO DAILY
escitalopram oxalate 5 mg Tablet
5 mg PO HSPRN PRN (Reason: anxiety)
furosemide 40 mg tablet
40 mg PO BID
atorvastatin 10 mg tablet
10 mg PO DAILY
loratadine [Claritin] 10 mg tablet
10 mg PO DAILY PRN (Reason: allergies)
Discontinued
Eliquis 2.5 mg tablet
2.5 mg PO BID
ibuprofen [Advil] 200 mg Tablet
400 mg PO BIDPRN PRN (Reason: mild pain)
metoprolol tartrate 25 mg tablet
25 mg PO DAILY
Patient Comments:
11/28/2023, prescribed BID but pt. takes once daily.
Discharge Orders:
Discharge Patient (As Directed); Ordered 12/01/23
Ordered By: Roldan Baker
Discharge Date and Time
Discharge Date/Time: 12/01/23 15:39
Print Language: TURKMEN
[2023-12-01 15:33] VITALS: BP 138/70
== END 2023-12-01 15:39 ==
LOC: 4 WEST ACU 14:14
PROVIDERS: Physician Assistant; ADMITTING PHYSICIAN Internal Medicine; ATTENDING PHYSICIAN Internal Medicine; EMERGENCY PHYSICIAN Emergency Medicine; FAMILY PHYSICIAN Student in an Organized Health Care Education/Training Program
DX: M17.12 Unilateral primary osteoarthritis, left knee (principal); M25.462 Effusion, left knee; M19.012 Primary osteoarthritis, left shoulder; I48.19 Other persistent atrial fibrillation; R26.2 Difficulty in walking, not elsewhere classified; E78.5 Hyperlipidemia, unspecified; N18.30 Chronic kidney disease, stage 3 unspecified; I13.0 Hypertensive heart and chronic kidney disease with heart failure and stage 1 through stage 4 chronic kidney disease, or unspecified chronic kidney disease; K44.9 Diaphragmatic hernia without obstruction or gangrene; K57.10 Diverticulosis of small intestine without perforation or abscess without bleeding; J84.10 Pulmonary fibrosis, unspecified; K80.20 Calculus of gallbladder without cholecystitis without obstruction; N20.0 Calculus of kidney; N28.1 Cyst of kidney, acquired; I50.32 Chronic diastolic (congestive) heart failure; E03.9 Hypothyroidism, unspecified; K21.9 Gastro-esophageal reflux disease without esophagitis; Z79.01 Long term (current) use of anticoagulants; Z87.891 Personal history of nicotine dependence; Z79.890 Hormone replacement therapy; Z91.148 Patient's other noncompliance with medication regimen for other reason
CPT/HCPCS: 73030; 73560; 74176; 80048; 80053; 81003; 83735; 84100; 84443; 85025; 85027; 87086; 97167; 97530; 97535; 99285; G0378

== ENCOUNTER 2024-01-30 11:35 | Emergency (ER) | payer OTHER, SELFPAY ==
[2024-01-30 11:40] VITALS: BP 114/75
--- NOTE | 2024-01-30 12:41 | EDRN ---
Dr. Resendiz was in to see pt.
[2024-01-30 12:47] VITALS: BMI 30.1
--- NOTE | 2024-01-30 12:51 | ED.GENMED ---
Addendum entered and electronically signed by Kamilla Barraza PA-C 02/01/24 07:08:
prelim urine culture proteus
pt on keflex
await sensitivites
Original Note:
History of Present Illness
General
Chief Complaint: Urinary Symptoms
Source: patient and family
Exam Limitations: none
Time Seen by Provider: 01/30/24 12:23
Nursing documentation reviewed up to this point in time: agreed with
History of Present Illness
History of Present Illness:
83-year-old female presents emergency department complaining of burning when urinating. She denies any fever or abdominal pain.
Past History
Past History
ED Past Medical History: Arrthythmia, GERD, HTN, Hypothyroidism and Other
ED Past Surgical History: None
Patient has exhibited threatening behavior?: No
PSI?: No
Social History
Tobacco: Former smoker
Alcohol: None
Drug: None
Living: with family ([facility] since recent admission)
Review of Systems
Review of Systems
Allergies reviewed?: Yes
All Other Systems: Not applicable
Constitutional: Reports no symptoms
EENT: Reports no symptoms
Respiratory: Reports no symptoms
Cardiac: Reports no symptoms
ABD/GI: Reports no symptoms
: Reports dysuria
Musculoskeletal: Reports no symptoms
Skin: Reports no symptoms
Neurological: Reports no symptoms
Endocrine: Reports no symptoms
Hematologic/Lymphatic: Reports no symptoms
Psychiatric: Reports no symptoms
Phy Exam
Physical Exam
Physical Exam:
Physical Exam
General: no apparent distress, not acutely ill, wears diaper
Neck: supple. no meningeal signs. normal posterior pharynx
Heart: s1/s2 regular rate and rhythm, no murmur. equal radial
pulses.
HEENT: Pupils equal round reactive to light, EOMI
Lungs: no acute respiratory distress. clear bilaterally
Abdomen: normal bowel sounds. not tender. no CVAT
Neuro: alert and oriented. no focal neurological deficits cranial nerves II through XII intact
Skin: no rash
Psychiatric: well kept. interactive and cooperative
Extremities: no edema. no calf tenderness. negative homans. good distal pulses
Course
Orders/Labs/Results
Orders:
Orders
01/30/24 12:55
Straight cath- Treatment ONCE
01/30/24 13:02
Urinalysis Reflex To Culture Urgent
Date Specimen was Collected: 01/30/24
Time Specimen was Collected: 13:00
Urine Microscopic Reflex Cult Urgent
Urine Culture Urgent
EULALIA Source: U
Specimen Description:
Date Specimen was Collected: 01/30/24
Time Specimen was Collected: 13:00
01/30/24 14:26
Cephalexin Monohydrate [Keflex] 500 mg PO NOW STA
Abnormal Lab Results
01/30/24
13:02
Ur Occult Blood Reflex 4+ A
(Negative)
Urine Nitrite (Reflex) Positive A
(Negative)
Leukocyte Esterase Rfl 2+ A
(Negative)
Urine RBC 3-6 A /HPF
(0-2)
Urine WBC (Reflex) 30-40 A /HPF
(0-5)
Urine Bacteria (Reflex) Many A
(Negative)
Vital Signs
Initial and Last Documented VS:
Initial Vital Signs
Temp Pulse Resp BP Pulse Ox
98.3 F 62 18 114/75 98
01/30/24 11:40 01/30/24 11:40 01/30/24 11:40 01/30/24 11:40 01/30/24 11:40
Last Documented Vital Signs
Temp Pulse Resp BP Pulse Ox
98.3 F 67 16 98/58 98
01/30/24 11:40 01/30/24 13:21 01/30/24 13:21 01/30/24 13:21 01/30/24 13:21
MDM/Problems Addressed
Differential Diagnosis Includes:
Sepsis, UTI
MDM/Problems Addressed:
83-year-old female with UTI. Abdomen exam benign. Do not suspect sepsis.
Chronic conditions affecting care: HTN and Arrhythmia
*Pulse Oximetry
Patient hypoxic: no
*EKG
Interpreted by ED Provider?: NA
*Internal Investigator Interpretation
Rate: Internal Investigator- N/A
*Critical Care Note
Total Time (30-74mins, 75-104mins- exclusive of procedures): Not Applicable
Patient Management
Social determinants of health affecting care: Living situation
Escalation/DeEscalation of care consider admission/obs:
Admit not indicated
ED Attending Note
-
Portions of this chart may have been created with voice recognition software.� Occasional wrong word or��sound alike� substitutions may have occurred due to the inherent limitations of voice recognition software.
Discharge Plan
Departure
Patient Disposition: Home (Routine Discharge)
Date of Disposition: 01/30/24
Time of Disposition: 14:26
Patient with high blood pressure during this ER visit?: No
Condition: Good
Discharge Problem:
Acute UTI
Instructions: Urinary Tract Infection, Adult (DC)
Prescriptions:
New
cephalexin 500 mg capsule
500 mg PO BID 7 Days Qty: 14 0RF
No Action
levothyroxine 25 mcg Tablet
25 mcg PO DAILY 30 Days Qty: 30 0RF
docusate sodium 100 mg Capsule
100 mg PO BID Qty: 0 0RF
therapeutic multivitamin Tablet
1 tab PO DAILY
acetaminophen [Tylenol Extra Strength] 500 mg Tablet
1,000 mg PO BID
pantoprazole 20 mg Tablet,Delayed Release (Dr/Ec)
20 mg PO DAILY
escitalopram oxalate 5 mg Tablet
5 mg PO DAILY
escitalopram oxalate 5 mg Tablet
5 mg PO HSPRN PRN (Reason: anxiety)
furosemide 40 mg tablet
40 mg PO BID
atorvastatin 10 mg tablet
10 mg PO DAILY
loratadine [Claritin] 10 mg tablet
10 mg PO DAILY PRN (Reason: allergies)
Eliquis 5 mg Tablet
5 mg PO BID 30 Days Qty: 60 0RF
lidocaine 4 % Adhesive Patch,Medicated
1 patch topical DAILY Qty: 15 0RF
lidocaine 4 % Adhesive Patch,Medicated
1 patch topical DAILY Qty: 15 0RF
metoprolol succinate 25 mg tablet extended release 24 hr
25 mg PO DAILY 30 Days Qty: 30 0RF
tramadol 25 mg tablet
25 mg PO BIDPRN PRN (Reason: moderate severe pain) 5 Days Qty: 10 0RF
Referrals:
Makayla Morales DO [Family Provider] -
Interventions
Interventions:
*Risk Screen - Suicide Last Done: 01/30/24 12:48
*General Assessment Last Done: 01/30/24 12:48
*Neglect/Abuse Screening Last Done: 01/30/24 12:48
ED- Fall Risk Assessment Last Done: 01/30/24 12:49
*ED COVID-19 Vaccine History Last Done: 01/30/24 11:40
ED-Female Genitourinary Assessment Last Done: 01/30/24 12:50
Discharge Date and Time
Print Language: VIETNAMESE
[2024-01-30 13:21] VITALS: BP 98/58
[2024-01-30 13:22] LABS: Urine Albumin Negative (Neg - Trace); Urine Bilirubin Negative (Negative); Urine Character Very Cloudy (Clear); Urine Color Straw; Urine Glucose Negative (Negative); Urine Ketone Negative (Negative); Urine Leukocyte 2+ (Negative); Urine Nitrite Positive (Negative); Urine Occult Blood 4+ (Negative); Urine Urobilinogen Negative (Neg - 1+)
[2024-01-30 13:43] LABS: Urine Bacteria Many (Negative); Urine White Cell 30-40 /HPF (0-5)
--- NOTE | 2024-01-30 13:44 | EDRN ---
Pt requested a sandwich to eat. Dr. Resendiz said okay and pt received a boxed lunch.
[2024-01-30 14:50] VITALS: BP 121/74
[2024-01-30] MEDS: KEFLEX 500 MG PO (14:52)
== END 2024-01-30 15:05 | disposition home or self-care (01) ==
LOC: EMR 11:35
PROVIDERS: EMERGENCY PHYSICIAN Emergency Medicine; FAMILY PHYSICIAN Student in an Organized Health Care Education/Training Program
DX: N39.0 Urinary tract infection, site not specified (principal); I10 Essential (primary) hypertension; E03.9 Hypothyroidism, unspecified; K21.9 Gastro-esophageal reflux disease without esophagitis; I48.91 Unspecified atrial fibrillation; E78.5 Hyperlipidemia, unspecified; M19.90 Unspecified osteoarthritis, unspecified site; M81.0 Age-related osteoporosis without current pathological fracture; Z96.641 Presence of right artificial hip joint; Z87.891 Personal history of nicotine dependence; Z79.01 Long term (current) use of anticoagulants
CPT/HCPCS: 99283; 51701; 81003; 81015; 87077; 87086; 87186

== ENCOUNTER 2024-03-18 11:40 | Inpatient (IN) | payer OTHER, SELFPAY ==
[2024-03-17 19:23] VITALS: BP 123/80
[2024-03-17 19:41] LABS: % Basophils 0.3 % (0-2); % Eosinophils 0.7 % (0-6); % Immature Granulocytes 0.4 % (0-0.5); % Lymphocytes 17.7 % (20.5-51.1); % Monocytes 4.5 % (1.7-9.3); % Neutrophils 76.4 % (42.2-75.2); Absolute Basophils 0.1 10^3/uL (0-0.2); Absolute Eosinophils 0.1 10^3/uL (0-0.7); Absolute Immature Granulocytes 0.1 10^3/uL (0-0.05); Absolute Lymphocytes 2.8 10^3/uL (1.2-3.4); Absolute Monocytes 0.7 10^3/uL (0.1-0.6); Hematocrit 39.8 % (37.0-47.0); Hemoglobin 12.5 g/dL (12.0-16.0); Mean Corp Hgb Conc. 31.4 g/dL (33.0-37.0); Mean Corpuscular Hgb 23.9 pg (27.0-31.0); Mean Platelet Volume 9.6 fL (7.4-10.4); Nucleated Red Blood Cells % 0 %; Platelet Count 244 10^3/uL (130-400); Red Blood Cell Count 5.24 10^6/uL (4.20-5.40); Red Cell Dist. Width 16.7 % (11.5-14.5); White Blood Cell Count 15.6 10^3/uL (4.8-10.8)
[2024-03-17 19:58] LABS: ALT (SGPT) 12 U/L (0-35); AST (SGOT) 21 U/L (14-36); Albumin 3.5 g/dl (3.5-5.0); Alkaline Phosphatase 108 U/L (38-126); Blood Urea Nitrogen 27 mg/dl (7-17); Calcium 9.4 mg/dl (8.4-10.2); Carbon Dioxide 22 mmol/L (22-30); Chloride 113 mmol/L (98-107); Glucose 100 mg/dl (70-99); Potassium 3.7 mmol/L (3.5-5.1); Sodium 147 mmol/L (135-145); Total Bilirubin 0.9 mg/dl (0.2-1.3); Total Protein 6.6 g/dl (6.3-8.2); eGFR 44.64
[2024-03-17 21:52] VITALS: BP 120/67
[2024-03-17 22:00] VITALS: BP 131/99
[2024-03-17 22:26] VITALS: BMI 27.5
[2024-03-17 23:00] VITALS: BP 119/68
--- NOTE | 2024-03-17 23:24 | ED.GENMED ---
History of Present Illness
General
Chief Complaint: Skin Problem
Source: patient and family (Daughter)
Exam Limitations: none
Time Seen by Provider: 03/17/24 22:44
History of Present Illness
History of Present Illness:
This is a 83 year old female that that is brought in by family with c/o sacral wounds and rash. Daughter states that she lives with her son and he can't help her. States that she sits in her urine and stool. States that this rash started a couple of
weeks ago and is getting worse. States that she has a headache. Denies any fever, chills, chest pain, SOB, abd pain, nausea, vomiting, diarrhea dizziness, urinary burning.
Past History
Past History
ED Past Medical History: Arrthythmia (Atrial fib), GERD, HTN, Hypercholesterolemia, Hypothyroidism and Other (C-diff, UTI, )
ED Past Surgical History: Orthopedic (Left arm nimisha, right leg nimisha, R hip replacement) and Other (Catarats, )
Patient has exhibited threatening behavior?: No
PSI?: No
Social History
Tobacco: Former smoker
Alcohol: None
Drug: None
Personal:
Living: with family ([place] [facility] since recent admission)
Review of Systems
Review of Systems
All Other Systems: ROS reviewed and negative except as documented in HPI and ROS
Constitutional: Reports no symptoms; Denies fever or chills
EENT: Reports no symptoms
Respiratory: Denies cough or trouble breathing
Cardiac: Reports no symptoms; Denies chest pain
ABD/GI: Reports no symptoms; Denies abdominal pain, nausea, vomiting or diarrhea
: Reports no symptoms; Denies dysuria, frequency or urgency
Musculoskeletal: Reports no symptoms
Skin: Reports other (rash on the buttocks and vaginal area. )
Neurological: Reports headache; Denies dizzy
Psychiatric: Reports no symptoms
Phy Exam
General Physical Exam
General Presentation: no apparent distress
General age: appears stated age
General Skin: warm and dry
General Habitus: elderly
General Mental: alert
General Hydration: appears well hydrated
ENT Exam
ENT Exam: TM's normal, pharynx normal and neck supple
Eye Exam
Eye Exam: EOMI
Cardiovascular Exam
Cardiovascular Exam: no edema, normal peripheral pulses and irregularly irregular
Pulmonary Exam
Pulmonary Exam: lungs clear, no respiratory distress, no rales, chest non tender, no crackles, no rhonchi, no wheezing and no cough
Gastrointestinal Exam
Gastrointestinal Exam: normal bowel sounds, non tender, soft, no organomegaly, no pulsatile mass and non distended
Genitourinary Exam Female
Vaginal Exam: other (Skin excoriation noted )
Musculoskeletal Exam
Musculoskeletal Exam: full ROM and no edema
Skin Exam
Skin Exam: normal color, warm/dry, no petechia and redness (Of the buttock area with red papules noted. redness goes out to the right hip area. Open wounds noted. )
Psychiatric Exam
Psychiatric Exam: normal mood/affect
Course
Orders/Labs/Results
Orders:
Orders
03/17/24 19:34
Complete Blood Count/With Diff Urgent
Comprehensive Metabolic Panel Urgent
03/17/24 23:31
Urinalysis Reflex To Culture Urgent
03/17/24 23:37
Piperacillin/Tazo 3.375 Gram [Zosyn] 3.375 gram in 50 ml IV NOW
03/17/24 23:40
Lactic Acid Urgent
03/17/24 23:42
0.9% Sodium Chloride 1000 ml [Nss] 1,000 ml IV BOLUS
03/18/24 00:03
Admit/Transfer Patient As Directed
Co-Sign Provider:
Level of Care: Observation services
Assign to:: Telemetry
Physician / Group: [email or web address]
Diagnosis: Decubitus buttock and scaral wound +/_ SSTI , FTT at home
Reason for Telemetry: Arrhythmia
Date to Stop Telemetry: 03/21/24
Time to Stop Telemetry: 11:00
Expected length of stay greater than two midnights?: Yes
ELOS- Estimated Length of Stay in days: 3
I certify the patient meets the requirements for IP care: Yes
03/18/24 00:07
Code Status As Directed
Resuscitation Status: Full Code
03/18/24 01:00
Flush (0.9% Sodium Chloride) [Flush (Nss)] See Dose Instructions IV PER PROTOCOL
03/18/24 01:54
0.45% Sodium Chloride 1000 ml [0.45%NaCl] 1,000 ml IV 80 mls/hr
Bisacodyl [Dulcolax] 10 mg RECTAL [id number] PRN
Docusate W/Senna [Senokot-S] 1 tablet PO BIDPRN PRN
Polyethylene Glycol Powder [Miralax] 17 grams PO DAILYPRN PRN
03/18/24 01:54
Consult Notification Routine
Specialty to Notify: Infectious Disease
INFECTIOUS DISEASE CONSULT Routine
Consulting Provider: Ayah Nguyen
Was physician already notified: No
Reason for consult: suspect buttock pressure wound with excoriation complicated by SSTI
WOUND/OSTOMY CONSULT Routine
Reason for Consult: Decubitus buttock and scaral wound +/_ SSTI , FTT
Activity As Directed
Activity Level: With Assistance
Intake/ Output As Directed
Frequency: Per unit guidelines
Vital Signs As Directed
Frequency: Per unit guidelines
Weight As Directed
Frequency: Daily
DX Deep Vein Thrombosis Video Routine
03/18/24 Breakfast
Cholesterol Lowering
Cholesterol Lowering: Sodium, 2 Gram
Basic Metabolic Panel IN AM
Complete Blood Count/No Diff IN AM
TSH IN AM
Levothyroxine [Synthroid] 25 mcg PO DAILY @ 0600
Piperacillin/Tazo 2.25 Gram [Zosyn] 2.25 grams in 50 ml IV Q6H
Physical Therapy Consult [Pt Eval And Treat] IN AM
Activity Level: With Assistance
03/18/24 08:00
Acetaminophen [Tylenol] 1,000 mg PO BID
Furosemide [Lasix] 40 mg PO BID
Metoprolol Xl [Toprol Xl] 25 mg PO DAILY
Pantoprazole [Protonix] 20 mg PO DAILY
03/18/24 18:00
Enoxaparin Sodium [Lovenox] 40 mg SC QPM
03/21/24 11:00
DC Protocol for Telemetry ONCE
Abnormal Lab Results
03/17/24
19:34
WBC 15.6 H 10^3/uL
(4.8-10.8)
MCV 76.0 L fL
(81.0-99.0)
MCH 23.9 L pg
(27.0-31.0)
MCHC 31.4 L g/dL
(33.0-37.0)
RDW 16.7 H %
(11.5-14.5)
Abs Immat Gran (auto) 0.1 H 10^3/uL
(0-0.05)
Absolute Neuts (auto) 12.0 H 10^3/uL
(1.4-6.5)
Absolute Monos (auto) 0.7 H 10^3/uL
(0.1-0.6)
Neutrophils % 76.4 H %
(42.2-75.2)
Lymphocytes % 17.7 L %
(20.5-51.1)
Sodium 147 H mmol/L
(135-145)
Chloride 113 H mmol/L
(98-107)
BUN 27 H mg/dl
(7-17)
Creatinine 1.2 H mg/dL
(0.6-1.0)
Glucose 100 H mg/dl
(70-99)
03/17/24 19:34
03/17/24 19:34
Leukocytosis, Sodium slightly elvted. Chloride elevated. Dehydration. Glucose nonfasting. Lactic acid normal at 1.1
Vital Signs
Initial and Last Documented VS:
Initial Vital Signs
Temp Pulse Resp BP Pulse Ox
98.5 F 82 16 123/80 99
03/17/24 19:23 03/17/24 19:23 03/17/24 19:23 03/17/24 19:23 03/17/24 19:23
Last Documented Vital Signs
Temp Pulse Resp BP Pulse Ox
98.1 F 90 16 122/78 100
03/18/24 02:27 03/18/24 02:27 03/18/24 02:27 03/18/24 02:27 03/18/24 02:27
MDM/Problems Addressed
Differential Diagnosis Includes:
superimposed cellulitis with sacral wounds.
MDM/Problems Addressed:
This is a 83 year old female that comes in with c/o redness of the buttocks and vaginal area with a rash. Daughter states that this started a couple of weeks ago as she lives with her son who is a diabetic and had part of his foot amputated and he
is unable to care for patient.
Will check labs and admit.
Explained to family and patient that she would be admitted. Will start antibiotics. Hospitalist notified.
Chronic conditions affecting care:
NA
Acute Exacerbation and/or Progression of Chronic Illness:
Na
*Pulse Oximetry
Patient hypoxic: no
*EKG
Interpreted by ED Provider?: NA
Rate: EKG- N/A
*Mobile Marketing Manager Interpretation
Rate: Mobile Marketing Manager- N/A
*Critical Care Note
Total Time (30-74mins, 75-104mins- exclusive of procedures): Not Applicable
ED Attending Note
-
Portions of this chart may have been created with voice recognition software.� Occasional wrong word or��sound alike� substitutions may have occurred due to the inherent limitations of voice recognition software.
Discharge Plan
Departure
Patient Disposition: Admit
Date of Disposition: 03/17/24
Time of Disposition: 23:39
Admit to: Med/Surg
Presentation/result/management discussed w/ accepting MD/DO: Hospitalist
Patient with high blood pressure during this ER visit?: Yes
Condition: Good
Covid-19: Not Applicable
Discharge Problem:
Sacral wounds/ underlying cellulitis, Hospital admission due to social situation
Interventions
Interventions:
*Risk Screen - Suicide Last Done: 03/17/24 19:24
*General Assessment Last Done: 03/17/24 19:23
*Neglect/Abuse Screening Last Done: 03/17/24 19:23
ED- Fall Risk Assessment Last Done: 03/17/24 22:28
*ED COVID-19 Vaccine History Last Done: 03/17/24 19:23
*Nursing Disposition Last Done: 03/18/24 01:50
ED-Skin Assessment Last Done: 03/17/24 23:15
Discharge Date and Time
Discharge Date/Time: 03/18/24 01:52
--- NOTE | 2024-03-17 23:42 | HPS.HSE ---
Family Physician
-
Family Physician: Georgi Valderrama
Chief Complaint
-
Buttocks win with open wound, Son cannot care for the patient
History of Present Illness
HPI
83F HX Prx AF on Eliquis, chronic HFpEF, Hypothyroidism, hypertension, hyperlipidemia, CKD3a/b BiB family for
sacral wounds and rash.
- Daughter reports that she lives with her diabetic disabled son with amputation and who he can't care for her
- patint would sits in her urine and stoo
- Buttock rash started a couple of weeks ago and is getting worse.
ROS:
Denies any fever, chills, chest pain, SOB, abd pain, nausea, vomiting, diarrhea dizziness, urinary burning.
Medical History
Past Medical History
Past Medical History: Reports Other (atrial fibrillation, C. difficile, hyperlipidemia, hypothyroidism, urinary retention, GERD,)
Past Surgical History: Reports None
Social History
Tobacco: Former Smoker
Alcohol: None
Drug: None
Family History
Family History: Not pertinent
Allergies / Home Medications
Allergies reflects when Allergies were last updated in [facility] [employer].
Home Medications with original date entered in [facility]
Allergy/Medication List:
Allergies
Allergy/AdvReac Type Severity Reaction Status Date / Time
No Known Allergies Allergy Verified 11/27/23 14:54
Home Medications
levothyroxine 25 mcg tablet 25 mcg PO DAILY Thyroid 30 days #30 tabs 12/24/22
apixaban 2.5 mg tablet (Eliquis) 2.5 mg PO BID Blood Clot Prevention/Tx 06/02/23
docusate sodium 100 mg capsule 100 mg PO BID #0 caps 06/16/23
acetaminophen 500 mg tablet (Tylenol Extra Strength) 1,000 mg PO BID 11/28/23
atorvastatin 10 mg tablet 10 mg PO DAILY High cholesterol 11/28/23
escitalopram oxalate 5 mg tablet 5 mg PO DAILY 11/28/23
escitalopram oxalate 5 mg tablet 5 mg PO HSPRN PRN anxiety 11/28/23
furosemide 40 mg tablet 40 mg PO BID Heart disease/condition 11/28/23
ibuprofen 200 mg tablet (Advil) 400 mg PO BIDPRN PRN mild pain 11/28/23
loratadine 10 mg tablet (Claritin) 10 mg PO DAILY PRN allergies 11/28/23
metoprolol tartrate 25 mg tablet 25 mg PO DAILY Arrhythmia 11/28/23
pantoprazole 20 mg tablet,delayed release 20 mg PO DAILY 11/28/23
therapeutic multivitamin 1 tab PO DAILY 11/28/23
Review of Systems
-
History Source: Patient
A 12 point ROS was completed and negative except as noted: Yes
Constitutional: Reports No Symptoms
EENT: Reports No Symptoms
Respiratory: Reports See HPI
Cardiac: Reports No Symptoms
Abdomen/GI: Reports No Symptoms
: Reports No Symptoms
Musculoskeletal: Reports No Symptoms
Skin: Reports See HPI and Rash
Neurological: Reports No Symptoms
Endocrine: Reports No Symptoms
Hematologic/Lymphatic: Reports No Symptoms
Psych: Reports No Symptoms
Physical Exam
Vital Signs
Vital Signs
Temp Pulse Resp BP Pulse Ox
98.5 F 88 25 119/68 97
03/17/24 19:23 03/17/24 23:00 03/17/24 23:00 03/17/24 23:00 03/17/24 22:28
Physical Exam
General: Well Developed, Well Nourished and No Apparent Distress
HEENT: NormoCephalic
Respiratory: Clear
Cardiac: S1/S2
GI: Soft and Non Tender
Musculoskeletal: Other (b/l le edema, left knee swelling - no erythema or tenderness)
Skin: Other (buttock area with red papules, redness goes out to the right hip area. Plus Open wounds)
Neuro: Awake, Alert, Oriented and AO x 3
Psych: Calm
Laboratory Results
-
03/17/24 19:34
03/17/24 19:34
Laboratory Results
Total Bilirubin 0.9 mg/dl (0.2-1.3) 03/17/24 19:34
AST 21 U/L (14-36) 03/17/24 19:34
ALT 12 U/L (0-35) 03/17/24 19:34
Alkaline Phosphatase 108 U/L (38-126) 03/17/24 19:34
Data Reviewed
-
Lab Data: Labs Reviewed by me
Old Records: Reviewed
Impression/Plan
-
Vital Signs
Temp Pulse Resp BP Pulse Ox
98.5 F 88 25 119/68 97
03/17/24 19:23 03/17/24 23:00 03/17/24 23:00 03/17/24 23:00 03/17/24 22:28
Data
12/01/23 03/17/24
07:21 19:34
WBC 15.6 H
Hgb 12.5
MCV 76.0 L
Sodium 147 H
Chloride 113 H
BUN 27 H
Creatinine 1.2 H
eGFR 40.55 44.64
Pending LA
Pending UA
Last hospitalist admission:
11/28/23 - 12/01/23 P Dx:
Hematuria resolved, not observed during hospitalization
suspected Urinary Tract Infection ruled out
ASSESSMENT & PLAN
Buttock and scarum rash and open wound with chemical excoriation
- suspect buttock pressure wound with excoriation complicated by SSTI of multiple small open wounds
- associated Leucocytosis
- chr ambulatory dysfunction
- FTT at home with disable son
- Empiric Zosyn
- Wd care consult
- PT/OT / CRM consult for SNF evaluation
- ID consult
Mild hypernatremia and hyperchloremia
- suspect dehydration
- 1/2 NS at f/u BMP
Persistent atrial fibrillation
stable renal function Cr consistently <1.5
- No longer on Eliquis per Daughter due to major falls risks
- on BB
HX Arthritis
- Associated with chronic ambulatory dysfunction - use walker and cane for short distance
- pain control with scheduled Tylenol plus prn Tramadol moderate severe pain
- To eval for SNF disposition
HX Lower extremity edema
� Non compliant Lasix
- to resume Lasix while IP
HX Chr HFpEF
- Stable respiratory status
- cont DENSITY CONTROL PUNCHER Lasix
HX CKD 3
- possible baseline Cr 1.0-1.3
- trend Cr
- avoid/minimize nephrotoxic medication use as possible
Other problems:
HLD: cont statin
Hypothyroidism: continue Levoxyl
Seasonal Allergies: cont Singulair
Moderate Hiatal hernia
GERD: start PPI
h/o Gallstones
h/o urinary retention
Duodenal diverticulum
DVT Px: LMWH
Code: full
Obs TLM
[2024-03-17] MEDS: NSS 1000 IV (23:44)
[2024-03-17] MEDS: ZOSYN 50 IV (23:44)
[2024-03-18] VITALS (8 sets, daily range): BP systolic 98–131; BP diastolic 52–83; BMI 27.1
[2024-03-18 00:01] LABS: Lactic Acid 1.1 mmol/L (0.7-2.0)
[2024-03-18] MEDS: 0.45%NACL 1000 IV ×3 (02:28→20:20)
[2024-03-18] MEDS: TYLENOL 650 MG PO (04:38)
[2024-03-18] MEDS: SYNTHROID 25 MCG PO (04:39)
[2024-03-18] MEDS: ULTRAM 25 MG PO (04:39)
[2024-03-18] MEDS: ZOSYN 50 IV ×2 (06:07→11:26)
[2024-03-18] MEDS: DESENEX/MITRAZOL/ZEASORB 1 APPLIC TOPICAL ×2 (10:33→20:17)
[2024-03-18] MEDS: TYLENOL 1000 MG PO ×2 (10:34→20:19)
[2024-03-18] MEDS: LASIX 40 MG PO ×2 (10:35→20:18)
[2024-03-18] MEDS: PROTONIX 20 MG PO (10:35)
[2024-03-18] MEDS: TOPROL XL 25 MG PO (10:35)
[2024-03-18 10:40] LABS: Hematocrit 35.4 % (37.0-47.0); Hemoglobin 11.1 g/dL (12.0-16.0); Mean Corp Hgb Conc. 31.4 g/dL (33.0-37.0); Mean Corpuscular Hgb 23.8 pg (27.0-31.0); Mean Platelet Volume 9.5 fL (7.4-10.4); Platelet Count 216 10^3/uL (130-400); Red Blood Cell Count 4.66 10^6/uL (4.20-5.40); Red Cell Dist. Width 16.6 % (11.5-14.5)
[2024-03-18 10:54] LABS: Blood Urea Nitrogen 29 mg/dl (7-17); Calcium 8.6 mg/dl (8.4-10.2); Carbon Dioxide 20 mmol/L (22-30); Chloride 112 mmol/L (98-107); Estimated Creatinine Clearance 30 ml/min; Glucose 102 mg/dl (70-99); Potassium 3.8 mmol/L (3.5-5.1); Sodium 143 mmol/L (135-145); eGFR 40.55
[2024-03-18 11:31] LABS: TSH 2.32 uIU/ml (0.47-4.68)
--- NOTE | 2024-03-18 11:32 | W.PN.HOSP.TC ---
Today's Communication/Plan
-
switch to IV Ancef
basic wound care ordered pending wound eval
PT/OT evals
Assessment / Plan
Assessment / Plan
Assessment:
Bilateral sacral/buttocks pressure injuries, stage 3, POA
mild cellulitis with leukocytosis
- likely driven by chronic ambulatory dysfunction, chronic FTT (lives with disabled son)
- wound care evaluation; for now wound care orders entered
- switch to Ancef, day 1
- PT/OT evals
Mild hypernatremia and hyperchloremia
- suspect dehydration
- 1/2 NS at f/u BMP
Persistent atrial fibrillation
stable renal function Cr consistently <1.5
- No longer on Eliquis per Daughter due to major falls risks
- on BB
HX Arthritis
- Associated with chronic ambulatory dysfunction - use walker and cane for short distance
- check L hip and L knee X-rays
- pain control with scheduled Tylenol plus prn Tramadol moderate severe pain
- PT/OT evals
HX Lower extremity edema
HX Chr HFpEF
- continue Lasix BID
HX CKD 3b
- possible baseline Cr 1.0-1.3
- trend Cr
- avoid/minimize nephrotoxic medication use as possible
HLD: cont statin
Hypothyroidism: continue Levoxyl
Seasonal Allergies: cont Singulair
Moderate Hiatal hernia
GERD: start PPI
h/o Gallstones
h/o urinary retention
Duodenal diverticulum
DVT ppx: Lovenox
Code: Full
Anticipated Discharge: 24 - 48 hours
Subjective/Interval History
-
Date of Service: March 18, 2024
denies any new complaints but reports some L hip pain at times
Objective Data
-
Labs:
Laboratory Results
03/18/24
10:31
WBC 8.0
Hgb 11.1 L
Hct 35.4 L
Plt Count 216
Sodium 143
Potassium 3.8
Chloride 112 H
Carbon Dioxide 20 L
BUN 29 H
Creatinine 1.3 H
Glucose 102 H
Calcium 8.6
Vital Signs:
Vital Signs
Temp Pulse Resp BP Pulse Ox
97.5 F 80 18 113/52 97
03/18/24 07:40 03/18/24 07:40 03/18/24 07:40 03/18/24 07:40 03/18/24 07:40
I&O
03/17/24 03/18/24 03/19/24
06:59 06:59 06:59
Intake Total 1170 / 1170
Balance 1170 / 1170
Physical Exam
-
General: No Apparent Distress
HEENT: Normocephalic and Atraumatic
Respiratory: Negative Wheezes
Cardiac: Regular Rhythm and S1/S2
GI: Soft
Genito-urinary: No Costovertebral Tender
Musculoskeletal: Other (L knee swelling)
Neuro: AO x 3
Hematologic / Lymphatic: No Lymphadenopathy
Psych: Calm
Data Reviewed
-
Total Time Spent with Patient (in minutes): 41
Labs: Labs Reviewed by me
--- NOTE | 2024-03-18 11:35 | CM ---
Addendum entered by Kate Clark 03/18/24 14:01:
Patient seen again at bedside, talking to son Lemuel. Per patient daughter is away today. Patient son agreed to speak with CM and with patient approval provided his phone number [phone]. Per patient son patient lives with her other son who she
says takes care of her but Lemuel says he doesn't. Patient is willing to go to [facility] if recommended to get stronger. Patient and son reviewed possible call to [facility] if patient does go straight home for assessment of care needs. CM will
continue to follow for discharge planning needs.
plan; SNF pending acceptance and authorization
Original Note:
Patient seen at bedside. Patient states that she lives with her family and her plan is to return to the home with daughter. Patient Daughter lives near [facility]. Patient has been to [facility] x2 and would be willing to return there if
needed, patient does not see any need at this time. CM and Physician attempted to reach patient daughter via phone with out success. Additional phone number for daughter is [phone]. Pending PT/OT assessment. Patient is OBS and was given
OBS/STUART form, physician is changing status to INP. CM will continue to follow for discharge planning needs.
Plan; SNF vs home with Vn; pending PT/OT assessment
[2024-03-18 13:30] LABS: Urine Albumin 1+ (Neg - Trace); Urine Bilirubin Negative (Negative); Urine Character Very Cloudy (Clear); Urine Color Yellow; Urine Glucose Negative (Negative); Urine Ketone Negative (Negative); Urine Leukocyte 2+ (Negative); Urine Nitrite Positive (Negative); Urine Occult Blood 4+ (Negative); Urine Urobilinogen Negative (Neg - 1+)
[2024-03-18 14:33] LABS: Urine Bacteria Many (Negative); Urine White Cell >100 /HPF (0-5)
[2024-03-18] MEDS: LOVENOX 40 MG SC (16:48)
[2024-03-18] MEDS: MAXIPIME 1000 MG IV (16:48)
[2024-03-18] MEDS: STERILE WATER FOR INJECTION 10 ML IV (16:48)
[2024-03-18] MEDS: FLUSH (NSS) 2 FLUSH IV (16:50)
[2024-03-19] VITALS (8 sets, daily range): BP systolic 102–130; BP diastolic 50–83; BMI 27.1
[2024-03-19] MEDS: MAXIPIME 1000 MG IV ×2 (05:32→17:52)
[2024-03-19] MEDS: SYNTHROID 25 MCG PO (05:33)
[2024-03-19] MEDS: STERILE WATER FOR INJECTION 10 ML IV ×2 (05:33→17:52)
[2024-03-19 06:39] LABS: Hematocrit 35.7 % (37.0-47.0); Hemoglobin 11.3 g/dL (12.0-16.0); Mean Corp Hgb Conc. 31.7 g/dL (33.0-37.0); Mean Corpuscular Hgb 23.8 pg (27.0-31.0); Mean Corpuscular Volume 75.3 fL (81.0-99.0); Mean Platelet Volume 9.4 fL (7.4-10.4); Platelet Count 221 10^3/uL (130-400); Red Blood Cell Count 4.74 10^6/uL (4.20-5.40); Red Cell Dist. Width 16.4 % (11.5-14.5); White Blood Cell Count 9.7 10^3/uL (4.8-10.8)
[2024-03-19 06:59] LABS: Blood Urea Nitrogen 33 mg/dl (7-17); Carbon Dioxide 23 mmol/L (22-30); Chloride 108 mmol/L (98-107); Estimated Creatinine Clearance 26 ml/min; Glucose 92 mg/dl (70-99); Potassium 4.1 mmol/L (3.5-5.1); Sodium 141 mmol/L (135-145); eGFR 34.15
[2024-03-19] MEDS: PROTONIX 20 MG PO (08:19)
[2024-03-19] MEDS: TYLENOL 1000 MG PO ×2 (08:19→20:33)
[2024-03-19] MEDS: TOPROL XL 25 MG PO (08:20)
[2024-03-19] MEDS: DESENEX/MITRAZOL/ZEASORB 1 APPLIC TOPICAL ×2 (08:20→20:33)
--- NOTE | 2024-03-19 08:36 | W.PN.HOSP.TC ---
Today's Communication/Plan
-
continue Cefepime, day 2, pending urine culture
continue wound care, formal wound care eval pending
HC cream for back eczema itching
PT/OT pending
Assessment / Plan
Assessment / Plan
Assessment:
Bilateral sacral/buttocks pressure injuries, stage 3, POA
mild cellulitis with leukocytosis
- likely driven by chronic ambulatory dysfunction, chronic FTT (lives with disabled son)
- wound care evaluation; for now wound care orders entered
- continue Cefepime, day 2, pending culture
- PT/OT evals pending
Mild hypernatremia and hyperchloremia
- suspect dehydration
- resolved, cap IVF, encourage oral intake
UTI
- continue Cefepime, day 2, pending culture
Persistent atrial fibrillation
stable renal function Cr consistently <1.5
- No longer on Eliquis per family due to major falls risks
- on BB
HX Arthritis
- Associated with chronic ambulatory dysfunction - use walker and cane for short distance
- L Knee: There is severe joint space narrowing with degenerative spurring and subchondral sclerosis at the lateral margin of the tibiofemoral joint consistent with degenerative osteoarthritis. There is moderate joint space narrowing and
degenerative spurring at the patellofemoral joint indicating degenerative osteoarthritis
- L hip: no abnormalities
- pain control with scheduled Tylenol plus prn Tramadol moderate severe pain
- PT/OT evals pending
HX Lower extremity edema
HX Chr HFpEF
- hold Lasix BID for rising Cr
HX CKD 3b
- possible baseline Cr 1.0-1.3
- trend Cr, currently 1.5. Hold Lasix, encourage oral hydration
- avoid/minimize nephrotoxic medication use as possible
Back pruritis from eczema
- low dose Hydrocortisone cream added
HLD: cont statin
Hypothyroidism: continue Levoxyl
Seasonal Allergies: cont Singulair
Moderate Hiatal hernia
GERD: continue PPI
h/o Gallstones
h/o urinary retention
Duodenal diverticulum
DVT ppx: Lovenox
Code: Full
Anticipated Discharge: 24 - 48 hours
Subjective/Interval History
-
Date of Service: March 19, 2024
reports some back itching from her eczema, requesting a cream
Objective Data
-
Labs:
Laboratory Results
03/19/24
06:30
WBC 9.7
Hgb 11.3 L
Hct 35.7 L
Plt Count 221
Sodium 141
Potassium 4.1
Chloride 108 H
Carbon Dioxide 23
BUN 33 H
Creatinine 1.5 H
Glucose 92
Calcium 9.0
Vital Signs:
Vital Signs
Temp Pulse Resp BP Pulse Ox
97.7 F 74 18 130/63 96
03/19/24 07:40 03/19/24 07:40 03/19/24 07:40 03/19/24 07:40 03/19/24 07:40
I&O
03/18/24 03/19/24 03/20/24
06:59 06:59 06:59
Intake Total 1170 / 1170 1150 / 1150 920 / 920
Output Total 550 / 550
Balance 1170 / 1170 600 / 600 920 / 920
Physical Exam
-
General: No Apparent Distress
HEENT: Normocephalic and Atraumatic
Respiratory: Negative Wheezes
Cardiac: Regular Rhythm
GI: Soft
Genito-urinary: No Costovertebral Tender
Musculoskeletal: No Edema
Skin: Other (superficial stage 3 PIs on L buttocks, L lower back. dry eczema patch L back)
Neuro: AO x 3
Psych: Calm
Data Reviewed
-
Total Time Spent with Patient (in minutes): 41
Diagnostic Radiology: Report Reviewed by me and Discussed with Patient
Labs: Labs Reviewed by me
[2024-03-19] MEDS: ULTRAM 25 MG PO (09:38)
[2024-03-19] MEDS: HYDROCORTISONE 1% CREAM 1 APPLIC TOPICAL ×2 (15:17→20:33)
[2024-03-19] MEDS: LOVENOX 30 MG SC (17:52)
[2024-03-19] MEDS: FLUSH (NSS) 2 FLUSH IV (17:54)
[2024-03-20 03:57] VITALS: BP 102/68
[2024-03-20] MEDS: STERILE WATER FOR INJECTION 10 ML IV ×2 (05:39→17:21)
[2024-03-20] MEDS: MAXIPIME 1000 MG IV ×2 (05:39→17:21)
[2024-03-20] MEDS: SYNTHROID 25 MCG PO (05:40)
[2024-03-20 05:46] VITALS: BMI 27.2
--- NOTE | 2024-03-20 06:50 | W.PN.HOSP.TC ---
Today's Communication/Plan
-
cont abx
wound care
PT/OT
discharge planning SNF rehab
Assessment / Plan
Assessment / Plan
Physical Exam
General: No Apparent Distress
HEENT: Normocephalic and Atraumatic
Respiratory: Negative Wheezes
Cardiac: Regular Rhythm
GI: Soft nontender bowel sounds present
Genito-urinary: No Costovertebral Tender
Musculoskeletal: No Edema
Neuro: AO x 3
Psych: Calm
Assessment:
Bilateral sacral/buttocks pressure injuries, stage 3, POA
mild cellulitis with leukocytosis
- likely driven by chronic ambulatory dysfunction, chronic FTT (lives with disabled son)
- cont wound care, wound care evaluations
- continue Cefepime
-urine cx appreciated no significant growth
-MRSA screen positive maintain isolation protocols
- PT/OT eval appreciated SNF rehab
Mild hypernatremia and hyperchloremia
- suspect dehydration
- resolved, cap IVF, encourage oral intake
UTI
- continue Cefepime
Persistent atrial fibrillation
stable renal function Cr consistently <1.5
- No longer on Eliquis per family due to major falls risks
- on BB
HX Arthritis
- Associated with chronic ambulatory dysfunction - use walker and cane for short distance
- L Knee: There is severe joint space narrowing with degenerative spurring and subchondral sclerosis at the lateral margin of the tibiofemoral joint consistent with degenerative osteoarthritis. There is moderate joint space narrowing and
degenerative spurring at the patellofemoral joint indicating degenerative osteoarthritis
- L hip: no abnormalities
- pain control with scheduled Tylenol plus prn Tramadol moderate severe pain
- PT/OT evals appreciated as above
HX Lower extremity edema
HX Chr HFpEF
- hold Lasix BID for rising Cr
-monitor kidney function weights and I/O
HX CKD 3b
- possible baseline Cr 1.0-1.3
- trend Cr, currently 1.5. Hold Lasix, encourage oral hydration
- avoid/minimize nephrotoxic medication use as possible
Back pruritis from eczema
- low dose Hydrocortisone cream added
HLD: cont statin
Hypothyroidism: continue Levoxyl
Seasonal Allergies: cont Singulair
Moderate Hiatal hernia
GERD: continue PPI
h/o Gallstones
h/o urinary retention
Duodenal diverticulum
DVT ppx: Lovenox
Code: Full
I spent a total of 50 minutes with the patient or on the floor. More than 50% of this time involved counseling and coordination of care.
Anticipated Discharge: 24 - 48 hours
Subjective/Interval History
-
Date of Service: March 20, 2024
No acute distress sitting up comfortably in chair. Reports overall feeling well. AOx3 conversant and coherent.
Objective Data
-
Labs:
Laboratory Results
03/20/24
06:00
WBC Pending
Hgb Pending
Hct Pending
Plt Count Pending
Sodium Pending
Potassium Pending
Chloride Pending
Carbon Dioxide Pending
BUN Pending
Creatinine Pending
Glucose Pending
Calcium Pending
Vital Signs:
Vital Signs
Temp Pulse Resp BP Pulse Ox
97.9 F 85 16 102/68 96
03/20/24 03:57 03/20/24 03:57 03/20/24 03:57 03/20/24 03:57 03/20/24 03:57
I&O
03/18/24 03/19/24 03/20/24
06:59 06:59 06:59
Intake Total 1170 / 1170 1150 / 1150 3160 / 3160
Output Total 550 / 550 200 / 200
Balance 1170 / 1170 600 / 600 2960 / 2960
[2024-03-20 07:45] VITALS: BP 113/65
[2024-03-20 07:54] LABS: Hematocrit 33.9 % (37.0-47.0); Hemoglobin 10.9 g/dL (12.0-16.0); Mean Corp Hgb Conc. 32.2 g/dL (33.0-37.0); Mean Corpuscular Hgb 24.1 pg (27.0-31.0); Mean Platelet Volume 10.3 fL (7.4-10.4); Platelet Count 218 10^3/uL (130-400); Red Blood Cell Count 4.52 10^6/uL (4.20-5.40); Red Cell Dist. Width 16.5 % (11.5-14.5); White Blood Cell Count 7.2 10^3/uL (4.8-10.8)
[2024-03-20 08:23] LABS: Blood Urea Nitrogen 37 mg/dl (7-17); Calcium 8.7 mg/dl (8.4-10.2); Carbon Dioxide 20 mmol/L (22-30); Chloride 111 mmol/L (98-107); Estimated Creatinine Clearance 28 ml/min; Glucose 104 mg/dl (70-99); Sodium 141 mmol/L (135-145)
[2024-03-20] MEDS: PROTONIX 20 MG PO (08:26)
[2024-03-20] MEDS: TYLENOL 1000 MG PO ×2 (08:26→22:03)
[2024-03-20] MEDS: TOPROL XL 25 MG PO (08:26)
[2024-03-20] MEDS: HYDROCORTISONE 1% CREAM 1 APPLIC TOPICAL ×2 (08:27→22:02)
[2024-03-20] MEDS: DESENEX/MITRAZOL/ZEASORB 1 APPLIC TOPICAL ×2 (08:27→22:02)
[2024-03-20 11:40] VITALS: BP 105/70
[2024-03-20 15:45] VITALS: BP 94/59
[2024-03-20] MEDS: LOVENOX 30 MG SC (17:21)
[2024-03-20 19:35] VITALS: BP 104/66
[2024-03-20] MEDS: MELATONIN 3 MG PO (22:19)
[2024-03-20 23:00] VITALS: BP 94/47
[2024-03-21 03:22] VITALS: BP 96/59
[2024-03-21 06:00] VITALS: BMI 27.5
[2024-03-21] MEDS: MAXIPIME 1000 MG IV (06:13)
[2024-03-21] MEDS: SYNTHROID 25 MCG PO (06:13)
[2024-03-21] MEDS: STERILE WATER FOR INJECTION 10 ML IV (06:13)
--- NOTE | 2024-03-21 07:24 | W.PN.HOSP.TC ---
Today's Communication/Plan
-
Lasix to resume at reduced dose started tomorrow
cont monitoring renal function
IV abx transitioned to oral
checking CT Head given concern cognitive decline
discharge planning SNF
Assessment / Plan
Assessment / Plan
Physical Exam
General: No Apparent Distress
HEENT: Normocephalic and Atraumatic
Respiratory: Negative Wheezes
Cardiac: Regular Rhythm
GI: Soft nontender bowel sounds present
Genito-urinary: No Costovertebral Tender
Musculoskeletal: No Edema
Neuro: AO x 3
Psych: Calm
Assessment:
Bilateral sacral/buttocks pressure injuries, stage 3, POA
mild cellulitis with leukocytosis
- likely driven by chronic ambulatory dysfunction, chronic FTT (lives with disabled son)
- cont wound care, wound care evaluations
- continue Cefepime
-urine cx appreciated no significant growth
-MRSA screen positive maintain isolation protocols
- PT/OT eval appreciated SNF rehab
Mild hypernatremia and hyperchloremia
- suspect dehydration
- resolved, cap IVF, encourage oral intake
UTI
- Cefepime transitioned to cefdinir
Persistent atrial fibrillation
stable renal function Cr consistently <1.5
- No longer on Eliquis per family due to major falls risks
- on BB
HX Arthritis
- Associated with chronic ambulatory dysfunction - use walker and cane for short distance
- L Knee: There is severe joint space narrowing with degenerative spurring and subchondral sclerosis at the lateral margin of the tibiofemoral joint consistent with degenerative osteoarthritis. There is moderate joint space narrowing and
degenerative spurring at the patellofemoral joint indicating degenerative osteoarthritis
- L hip: no abnormalities
- pain control with scheduled Tylenol plus prn Tramadol moderate severe pain
- PT/OT evals appreciated as above
HX Lower extremity edema
HX Chr HFpEF
- hold Lasix BID for rising Cr
-monitor kidney function weights and I/O
HX CKD 3b
- possible baseline Cr 1.0-1.3
- trend Cr, currently 1.5. Hold Lasix, encourage oral hydration
- avoid/minimize nephrotoxic medication use as possible
Back pruritis from eczema
- low dose Hydrocortisone cream added
HLD: cont statin
Hypothyroidism: continue Levoxyl
Seasonal Allergies: cont Singulair
Moderate Hiatal hernia
GERD: continue PPI
h/o Gallstones
h/o urinary retention
Duodenal diverticulum
DVT ppx: Lovenox
Code: Full
discussed with patient's daughter Rachell
I spent a total of 50 minutes with the patient or on the floor. More than 50% of this time involved counseling and coordination of care.
Anticipated Discharge: 24 - 48 hours
Subjective/Interval History
-
Date of Service: March 21, 2024
no acute distress. Appears comfortable at this time.
Objective Data
-
Labs:
Laboratory Results
03/21/24
06:00
WBC Pending
Hgb Pending
Hct Pending
Plt Count Pending
Sodium Pending
Potassium Pending
Chloride Pending
Carbon Dioxide Pending
BUN Pending
Creatinine Pending
Glucose Pending
Calcium Pending
Vital Signs:
Vital Signs
Temp Pulse Resp BP Pulse Ox
97.3 F 81 16 96/59 96
03/21/24 03:22 03/21/24 03:22 03/21/24 03:22 03/21/24 03:22 03/21/24 03:22
I&O
03/20/24 03/21/24 03/22/24
06:59 06:59 06:59
Intake Total 3160 / 3160 840 / 840
Output Total 200 / 200
Balance 2960 / 2960 840 / 840
[2024-03-21 07:40] VITALS: BP 137/79
[2024-03-21] MEDS: TYLENOL 1000 MG PO ×2 (08:20→20:23)
[2024-03-21] MEDS: DESENEX/MITRAZOL/ZEASORB 1 APPLIC TOPICAL ×2 (08:20→20:24)
[2024-03-21] MEDS: PROTONIX 20 MG PO (08:20)
[2024-03-21] MEDS: HYDROCORTISONE 1% CREAM 1 APPLIC TOPICAL ×2 (08:20→20:23)
[2024-03-21] MEDS: TOPROL XL 25 MG PO (08:20)
[2024-03-21 08:54] LABS: Hematocrit 38.6 % (37.0-47.0); Hemoglobin 12.1 g/dL (12.0-16.0); Mean Corp Hgb Conc. 31.3 g/dL (33.0-37.0); Mean Corpuscular Hgb 24.7 pg (27.0-31.0); Mean Corpuscular Volume 78.9 fL (81.0-99.0); Mean Platelet Volume 9.9 fL (7.4-10.4); Platelet Count 219 10^3/uL (130-400); Red Blood Cell Count 4.89 10^6/uL (4.20-5.40); Red Cell Dist. Width 16.5 % (11.5-14.5); White Blood Cell Count 8.7 10^3/uL (4.8-10.8)
[2024-03-21 09:41] LABS: Blood Urea Nitrogen 36 mg/dl (7-17); Calcium 9.2 mg/dl (8.4-10.2); Carbon Dioxide 22 mmol/L (22-30); Chloride 110 mmol/L (98-107); Estimated Creatinine Clearance 37 ml/min; Glucose 91 mg/dl (70-99); Magnesium 2.5 mg/dl (1.6-2.3); Phosphorus 3.5 mg/dl (2.5-4.5); Potassium 4.7 mmol/L (3.5-5.1); Sodium 142 mmol/L (135-145); eGFR 44.64
[2024-03-21] MEDS: OMNICEF 300 MG PO ×2 (10:27→20:22)
[2024-03-21 11:48] VITALS: BP 108/80
[2024-03-21] MEDS: ANTIFUNGAL CLEAR 1 APPLIC TOPICAL ×2 (13:54→20:25)
--- NOTE | 2024-03-21 14:01 | WOUNDNOTE ---
[facility] RN NOTE: Reviewed chart, spoke to ZANDER Kendrick and met with patient. Patient is awake and alert and demonstrated ability to transfer to commode with assist of 1 or 2 people. Skin on buttocks red but appears improved since prior picture. Patient
also reporting itchy skin on upper back and left hip. Patient reports good relief with hydrocortisone creme to these areas. Plan is try to antifungal ointment to buttocks and avoid diapers. Attempt was made to use pad and stretch undergarment pants,
but they were too small. Patient currently sitting on absorptive white pad with commode nearby. Left upper buttock with stage 2 PI vs MASD. The area was pink and without drainage. Zinc and foam dressing applied. An air overlay has been added to bed
and patient was found to be sitting on an air cushion. Plan is for SNF. ZANDER Kendrick updated, will confirm order with hospitalist and follow as needed.
[2024-03-21 15:10] VITALS: BP 114/64
--- NOTE | 2024-03-21 16:44 | CM ---
Received consult pt ready for dc .
PT oT =SNF
Spoke with pt she is confused.
LM with dgt no answer.
Spoke with Lemuel [phone] son he said that family all in agreement for pt to go to [facility] Pt.
Pt has [employer] and need auth
Ariana from [facility] provided NPIs number.
[phone] spoke with Ely . Clinical provided.Clinical faxed to [phone] Pending auth number [id number] .
[facility] report [phone]
fax [phone]
PLAN To [facility] after auth obtained
--- NOTE | 2024-03-21 17:11 | PTCARENOTE ---
Daughter requesting to speak with case management about going to [facility] instead of [facility]. [employer] card was provided to daughter to call the floor tomorrow morning when case management is here.
[2024-03-21] MEDS: LOVENOX 30 MG SC (17:38)
[2024-03-21] MEDS: STERILE WATER FOR INJECTION IV (17:39)
[2024-03-21 19:45] VITALS: BP 117/65
[2024-03-21] MEDS: MELATONIN 3 MG PO (20:24)
[2024-03-21 23:13] VITALS: BP 136/63
[2024-03-22 03:12] VITALS: BP 104/69
[2024-03-22 06:00] VITALS: BMI 27.6
[2024-03-22] MEDS: SYNTHROID 25 MCG PO (06:02)
[2024-03-22] MEDS: STERILE WATER FOR INJECTION IV ×2 (06:02→17:46)
--- NOTE | 2024-03-22 07:19 | W.PN.HOSP.TC ---
Today's Communication/Plan
-
Medically stable for discharge pending SNF placement
Assessment / Plan
Assessment / Plan
Physical Exam
General: No Apparent Distress
HEENT: Normocephalic and Atraumatic
Respiratory: Negative Wheezes
Cardiac: Regular Rhythm
GI: Soft nontender bowel sounds present
Genito-urinary: No Costovertebral Tender
Musculoskeletal: No Edema
Neuro: AO x 3
Psych: Calm
Assessment:
Bilateral sacral/buttocks pressure injuries, stage 3, POA
mild cellulitis with leukocytosis
- likely driven by chronic ambulatory dysfunction, chronic FTT (lives with disabled son)
- cont wound care, wound care evaluations
- continue abx
-urine cx appreciated no significant growth
-MRSA screen positive maintain isolation protocols
- PT/OT eval appreciated SNF rehab
Mild hypernatremia and hyperchloremia
- suspect dehydration
- resolved, cap IVF, encourage oral intake
UTI
- Cefepime transitioned to cefdinir
Persistent atrial fibrillation
stable renal function Cr consistently <1.5
- No longer on Eliquis per family due to major falls risks, baby asa started
- on BB
HX Arthritis
- Associated with chronic ambulatory dysfunction - use walker and cane for short distance
- L Knee: There is severe joint space narrowing with degenerative spurring and subchondral sclerosis at the lateral margin of the tibiofemoral joint consistent with degenerative osteoarthritis. There is moderate joint space narrowing and
degenerative spurring at the patellofemoral joint indicating degenerative osteoarthritis
- L hip: no abnormalities
- pain control with scheduled Tylenol plus prn Tramadol moderate severe pain
- PT/OT evals appreciated as above
HX Lower extremity edema
HX Chr HFpEF
- held Lasix BID for rising Cr since improved, resumed at reduced daily dosing
-monitor kidney function weights and I/O
HX CKD 3b
- possible baseline Cr 1.0-1.3
- trend Cr, currently 1.5. Hold Lasix, encourage oral hydration
- avoid/minimize nephrotoxic medication use as possible
Back pruritis from eczema
- low dose Hydrocortisone cream added
Suspect Dementia mild cognitive impairment memory issues noted
per daughter patient exhibited memory issues for months
CT head appreciated no acute abn's
outpt follow up with neuropsych and neuro recommended
HLD: cont statin
Hypothyroidism: continue Levoxyl
Seasonal Allergies: cont Singulair
Moderate Hiatal hernia
GERD: continue PPI
h/o Gallstones
h/o urinary retention
Duodenal diverticulum
DVT ppx: Lovenox
Code: Full
Medically stable for discharge pending SNF placement
Daughter called to update but no answer received, unable to leave VM message. Last discussed with daughter Rachell 03/21
I spent a total of 40 minutes with the patient or on the floor. More than 50% of this time involved counseling and coordination of care.
Anticipated Discharge: 24 - 48 hours
Subjective/Interval History
-
Date of Service: March 22, 2024
No acute distress. Appears comfortable at this time.
Objective Data
-
Labs:
Laboratory Results
03/22/24
06:49
WBC Pending
Hgb Pending
Hct Pending
Plt Count Pending
Sodium Pending
Potassium Pending
Chloride Pending
Carbon Dioxide Pending
BUN Pending
Creatinine Pending
Glucose Pending
Calcium Pending
Vital Signs:
Vital Signs
Temp Pulse Resp BP Pulse Ox
97.8 F 77 18 104/69 98
03/22/24 03:12 03/22/24 03:12 03/22/24 03:12 03/22/24 03:12 03/22/24 03:12
I&O
03/21/24 03/22/24 03/23/24
06:59 06:59 06:59
Intake Total 840 / 840 1320 / 1320
Balance 840 / 840 1320 / 1320
[2024-03-22 07:24] LABS: Hematocrit 38.6 % (37.0-47.0); Hemoglobin 11.9 g/dL (12.0-16.0); Mean Corp Hgb Conc. 30.8 g/dL (33.0-37.0); Mean Corpuscular Hgb 24.4 pg (27.0-31.0); Mean Corpuscular Volume 79.1 fL (81.0-99.0); Mean Platelet Volume 10.3 fL (7.4-10.4); Platelet Count 231 10^3/uL (130-400); Red Blood Cell Count 4.88 10^6/uL (4.20-5.40); Red Cell Dist. Width 16.5 % (11.5-14.5); White Blood Cell Count 8.2 10^3/uL (4.8-10.8)
[2024-03-22 08:00] VITALS: BP 137/73
[2024-03-22 08:43] LABS: Blood Urea Nitrogen 36 mg/dl (7-17); Calcium 9.1 mg/dl (8.4-10.2); Chloride 111 mmol/L (98-107); Estimated Creatinine Clearance 40 ml/min; Glucose 82 mg/dl (70-99); Magnesium 2.5 mg/dl (1.6-2.3); Phosphorus 3.4 mg/dl (2.5-4.5); Potassium 4.6 mmol/L (3.5-5.1); Sodium 143 mmol/L (135-145); eGFR 49.55
[2024-03-22 09:01] LABS: Carbon Dioxide 19 mmol/L (22-30)
[2024-03-22] MEDS: OMNICEF 300 MG PO ×2 (09:13→20:57)
[2024-03-22] MEDS: TYLENOL 1000 MG PO ×2 (09:13→20:57)
[2024-03-22] MEDS: TOPROL XL 25 MG PO (09:14)
[2024-03-22] MEDS: LASIX 40 MG PO (09:15)
[2024-03-22] MEDS: HYDROCORTISONE 1% CREAM 1 APPLIC TOPICAL ×2 (09:15→20:56)
[2024-03-22] MEDS: DESENEX/MITRAZOL/ZEASORB 1 APPLIC TOPICAL ×2 (09:15→20:56)
[2024-03-22] MEDS: ANTIFUNGAL CLEAR 1 APPLIC TOPICAL ×2 (09:16→20:55)
[2024-03-22] MEDS: LOW STRENGTH ASPIRIN 81 MG PO (11:31)
[2024-03-22] MEDS: PROTONIX 20 MG PO (11:31)
[2024-03-22 12:00] VITALS: BP 124/58
[2024-03-22 12:04] LABS: Iron 38 ug/dl (37-170)
[2024-03-22 12:14] LABS: Percent Saturation 11 % (20-50); Total Iron Binding Capacity 332 ug/dl (265-497)
[2024-03-22 16:00] VITALS: BP 109/66
[2024-03-22 16:04] LABS: Ferritin 19.1 ng/ml (11.1-264.0)
--- NOTE | 2024-03-22 16:06 | CM ---
Reviewed the chart notes and spoke with the patient and her daughter at the bedside. IMM reviewed and placed on the chart. Patient now wants to go home with [facility]. Patient's daughter in agreement with plans. Referral sent to [facility].
continues to be available to patient/family and is monitoring medical plan for needs at discharge.
Plan: Discharge to home with [facility] services.
[2024-03-22 16:36] LABS: Folate 6.1 ng/ml (2.76-20); Vitamin B12 428 pg/ml (239-931)
[2024-03-22] MEDS: LOVENOX 30 MG SC (17:46)
[2024-03-22 19:41] VITALS: BP 92/62
--- NOTE | 2024-03-22 19:48 | PTCARENOTE ---
Patient's daughter stated to this RN at end of day that patient feels unsafe to return home and is requesting short term skilled rehab. shift supervisor rn RN made aware, to pass on to day shift and case management in AM.
[2024-03-22] MEDS: MELATONIN 3 MG PO (20:58)
[2024-03-22 23:04] VITALS: BP 93/58
[2024-03-23 03:07] VITALS: BP 156/63
[2024-03-23] MEDS: SYNTHROID 25 MCG PO (05:36)
[2024-03-23] MEDS: STERILE WATER FOR INJECTION IV ×2 (05:36→18:09)
[2024-03-23 06:00] VITALS: BMI 27.5
[2024-03-23 07:07] VITALS: BP 135/72
--- NOTE | 2024-03-23 07:51 | W.PN.HOSP.TC ---
Today's Communication/Plan
-
last day of abx
discharge to SNF tomorrow
Assessment / Plan
Assessment / Plan
Physical Exam
General: No Apparent Distress
HEENT: Normocephalic and Atraumatic
Respiratory: Negative Wheezes
Cardiac: Regular Rhythm
GI: Soft nontender bowel sounds present
Genito-urinary: No Costovertebral Tender
Musculoskeletal: No Edema
Neuro: AO x 3
Psych: Calm
Assessment:
Bilateral sacral/buttocks pressure injuries, stage 3, POA
mild cellulitis with leukocytosis
- likely driven by chronic ambulatory dysfunction, chronic FTT (lives with disabled son)
- cont wound care, wound care evaluations
- continue abx
-urine cx appreciated no significant growth
-MRSA screen positive maintain isolation protocols
- PT/OT eval appreciated SNF rehab
Mild hypernatremia and hyperchloremia
- suspect dehydration
- resolved, cap IVF, encourage oral intake
UTI
- Cefepime transitioned to cefdinir
Persistent atrial fibrillation
stable renal function Cr consistently <1.5
- No longer on Eliquis per family due to major falls risks, baby asa started
- on BB
HX Arthritis
- Associated with chronic ambulatory dysfunction - use walker and cane for short distance
- L Knee: There is severe joint space narrowing with degenerative spurring and subchondral sclerosis at the lateral margin of the tibiofemoral joint consistent with degenerative osteoarthritis. There is moderate joint space narrowing and
degenerative spurring at the patellofemoral joint indicating degenerative osteoarthritis
- L hip: no abnormalities
- pain control with scheduled Tylenol plus prn Tramadol moderate severe pain
- PT/OT evals appreciated as above
HX Lower extremity edema
HX Chr HFpEF
- held Lasix BID for rising Cr since improved, resumed at reduced daily dosing
-monitor kidney function weights and I/O
HX CKD 3b
- possible baseline Cr 1.0-1.3
- trend Cr, currently 1.5. Hold Lasix, encourage oral hydration
- avoid/minimize nephrotoxic medication use as possible
Back pruritis from eczema
- low dose Hydrocortisone cream added
Suspect Dementia mild cognitive impairment memory issues noted
per daughter patient exhibited memory issues for months
CT head appreciated no acute abn's
outpt follow up with neuropsych and neuro recommended
HLD: cont statin
Hypothyroidism: continue Levoxyl
Seasonal Allergies: cont Singulair
Moderate Hiatal hernia
GERD: continue PPI
h/o Gallstones
h/o urinary retention
Duodenal diverticulum
DVT ppx: Lovenox
Code: Full
Medically stable for discharge SNF tomorrow
discussed with patient and patient's daughter Rachell
I spent a total of 40 minutes with the patient or on the floor. More than 50% of this time involved counseling and coordination of care.
Anticipated Discharge: Within 24 hours
Subjective/Interval History
-
Date of Service: March 23, 2024
Objective Data
-
Vital Signs:
Vital Signs
Temp Pulse Resp BP Pulse Ox
97.7 F 76 16 135/72 98
03/23/24 07:07 03/23/24 07:07 03/23/24 07:07 03/23/24 07:07 03/23/24 07:07
I&O
03/22/24 03/23/24 03/24/24
06:59 06:59 06:59
Intake Total 1320 / 1320 1020 / 1020
Balance 1320 / 1320 1020 / 1020
[2024-03-23] MEDS: LASIX 40 MG PO (08:10)
[2024-03-23] MEDS: PROTONIX 20 MG PO (08:10)
[2024-03-23] MEDS: OMNICEF 300 MG PO ×2 (08:10→20:12)
[2024-03-23] MEDS: TOPROL XL 25 MG PO (08:11)
[2024-03-23] MEDS: TYLENOL 1000 MG PO ×2 (08:11→20:12)
[2024-03-23] MEDS: LOW STRENGTH ASPIRIN 81 MG PO (08:11)
--- NOTE | 2024-03-23 08:43 | CM ---
Addendum entered by Colleen Gauthier RN 03/23/24 14:30:
Per attending, the family is not prepared for the patient to discharge today to [facility]. They will be prepared tomorrow. Received a text from someone that the daughter texted them. CM left voice message for daughter for call back.
Addendum entered by Colleen Gauthier RN 03/23/24 09:24:
Family [facility]. [facility] do not contract with the patient's insurance.
Addendum entered by Colleen Gauthier RN 03/23/24 09:12:
Reviewed the chart notes and spoke with the patient and her son-in-law at the bedside. Patient now wants to go to [facility] for rehab. Auth information provided to Ariana [facility] liaison.
Plan: Discharge to [facility]
Call report to: [phone]
Fax report to: [phone]
Per patient son-in-law or daughter will provide transportation.
Original Note:
Received auth from [facility] for Nursing Home Level 2; 5 days; Auth # [id number]. Patient and family have decided home with [facility]. Referral sent and accept by the [facility] office.
Plan: Discharge to home with [facility] services.
[facility]
[2024-03-23] MEDS: DESENEX/MITRAZOL/ZEASORB 1 APPLIC TOPICAL ×2 (09:09→20:11)
[2024-03-23] MEDS: HYDROCORTISONE 1% CREAM 1 APPLIC TOPICAL ×2 (09:10→20:11)
[2024-03-23] MEDS: ANTIFUNGAL CLEAR 1 APPLIC TOPICAL ×2 (09:12→20:12)
[2024-03-23 14:18] VITALS: BMI 27.6
[2024-03-23 15:35] VITALS: BP 115/65
[2024-03-23] MEDS: LOVENOX 30 MG SC (18:08)
[2024-03-23] MEDS: MELATONIN 3 MG PO (22:30)
[2024-03-23 23:30] VITALS: BP 122/68
[2024-03-24] MEDS: STERILE WATER FOR INJECTION IV (05:44)
[2024-03-24 06:00] VITALS: BMI 27.5
[2024-03-24] MEDS: SYNTHROID 25 MCG PO (06:25)
--- NOTE | 2024-03-24 07:20 | W.PN.HOSP.TC ---
Today's Communication/Plan
-
discharge
Assessment / Plan
Assessment / Plan
Physical Exam
General: No Apparent Distress
HEENT: Normocephalic and Atraumatic
Respiratory: Negative Wheezes
Cardiac: Regular Rhythm
GI: Soft nontender bowel sounds present
Genito-urinary: No Costovertebral Tender
Musculoskeletal: No Edema
Neuro: AO x 3 some memory issues noted
Psych: Calm Pleasant
Assessment:
Bilateral sacral/buttocks pressure injuries, stage 3, POA
mild cellulitis with leukocytosis
- likely driven by chronic ambulatory dysfunction, chronic FTT (lives with disabled son)
- cont wound care, wound care evaluations
- continue abx
-urine cx appreciated no significant growth
-MRSA screen positive maintain isolation protocols
- PT/OT eval appreciated SNF rehab
Suspect early signs of Dementia
memory issues noted
CT head appreciated no acute abn's
outpt follow neurology and neuropsychiatry recommended
Mild hypernatremia and hyperchloremia
-resolved, IVF completed
UTI
- Cefepime transitioned to cefdinir completed 7 days abx total
Persistent atrial fibrillation
stable renal function Cr consistently <1.5
- No longer on Eliquis per family due to major falls risks, baby asa started
- on BB
-low dose aspirin started
HX Arthritis
- Associated with chronic ambulatory dysfunction - use walker and cane for short distance
- L Knee: There is severe joint space narrowing with degenerative spurring and subchondral sclerosis at the lateral margin of the tibiofemoral joint consistent with degenerative osteoarthritis. There is moderate joint space narrowing and
degenerative spurring at the patellofemoral joint indicating degenerative osteoarthritis
- L hip: no abnormalities
- pain control with scheduled Tylenol plus prn Tramadol moderate severe pain
- PT/OT evals appreciated as above
HX Lower extremity edema
HX Chr HFpEF
- held Lasix BID for rising Cr since improved, resumed at reduced daily dosing
-monitor kidney function weights and I/O
ALEX HX CKD 3b
- possible baseline Cr 1.0-1.3
- Cr trended up to 1.5 since improved with hold and subsequent reduction in lasix dose as above
Back pruritis from eczema
- low dose Hydrocortisone cream added
Suspect Dementia mild cognitive impairment memory issues noted
per daughter patient exhibited memory issues for months
CT head appreciated no acute abn's
outpt follow up with neuropsych and neuro recommended
HLD: cont statin
Hypothyroidism: continue Levoxyl
Seasonal Allergies: cont Singulair
Moderate Hiatal hernia
GERD: continue PPI
h/o Gallstones
h/o urinary retention
Duodenal diverticulum
DVT ppx: Lovenox
Code: Full
Medically stable for discharge SNF with outpatient follow up recommendations.
discussed with patient and patient's daughter Rachell
I spent a total of 40 minutes with the patient or on the floor. More than 50% of this time involved counseling and coordination of care.
Anticipated Discharge: Today
Subjective/Interval History
-
Date of Service: March 24, 2024
no acute distress. Reports feeling well. Denies new acute issues.
Objective Data
-
Vital Signs:
Vital Signs
Temp Pulse Resp BP Pulse Ox
97.2 F 78 18 122/68 95
03/23/24 23:30 03/23/24 23:30 03/23/24 23:30 03/23/24 23:30 03/23/24 23:30
I&O
03/23/24 03/24/24 03/25/24
06:59 06:59 06:59
Intake Total 1020 / 1020 1380 / 1380
Output Total 3 / 3
Balance 1020 / 1020 1377 / 1377
[2024-03-24 07:41] VITALS: BP 133/72
[2024-03-24] MEDS: TYLENOL 1000 MG PO (08:21)
[2024-03-24] MEDS: DESENEX/MITRAZOL/ZEASORB 1 APPLIC TOPICAL (08:21)
[2024-03-24] MEDS: TOPROL XL 25 MG PO (08:21)
[2024-03-24] MEDS: PROTONIX 20 MG PO (08:21)
[2024-03-24] MEDS: LOW STRENGTH ASPIRIN 81 MG PO (08:21)
[2024-03-24] MEDS: LASIX 40 MG PO (08:21)
[2024-03-24] MEDS: HYDROCORTISONE 1% CREAM 1 APPLIC TOPICAL (08:22)
[2024-03-24] MEDS: ANTIFUNGAL CLEAR 1 APPLIC TOPICAL (08:22)
--- NOTE | 2024-03-24 14:08 | W.DCSUMMARY ---
Discharge Summary
Discharge Data
Date of Admission: 03/18/24
Date of Discharge: 03/24/24
-
Pending Results: No
Discharge Plan
-
Patient Disposition: Long-Term/SNF
Discharge Diagnosis/Procedures: Bilateral sacral/buttocks pressure injuries, stage 3, POA
Mild hypernatremia and hyperchloremia, suspect due to dehydration, resolved following IV fluids
Urinary Tract infection completed antibiotic treatment
Persistent atrial fibrillation
Arthritis
Lower extremity edema
Chronic Heart Failure with preserved ejection fraction
Chronic Kidney Disease stage III
Suspect early signs Dementia, mild cognitive impairment memory issues noted
Hyperlipidemia
Hypothyroidism
Seasonal Allergies
Moderate Hiatal hernia
GERD
Condition: Fair
Diet: Low Cholesterol and 2 Gram Sodium
Activity: With assistance, As tolerated and With Walker
Driving Restrictions: No driving
Bathing Restrictions: None
Blood Work: please repeat CBC and BMP with primary care provider in 1 week of discharge.
Other Services: PT, OT and ST
Activity Restrictions/Additional Instructions:
Wound Care Instructions Sacrum/Buttocks- Clean gently with soap and water and gently pat dry. Apply antifungal ointment to fungal appearing skin on buttocks BID or PRN if incontinent. Avoid diapers and try knit underpants and pads for urine
incontinence.
Please follow up with primary care provider in 1 week of discharge and, in 2-4 weeks of discharge, neurology and neuropsychiatry.
Aspirin has been started for stroke risk reduction atrial fibrillation unable to tolerate blood thinners due to frequent falls.
Lasix dose has been reduced to daily instead of twice of day due to acute kidney injury/dehydration since resolved
Please take medications as prescribed/recommended and follow up with primary care provider and/or other healthcare provider involved in your care for refills and/or further adjustment to your medication regimen as necessary.
Referrals:
Shivam Amador PSY [Specified Professional Personl] - in two to four weeks
Mathew Michelle MD [Active] - in two to four weeks
Georgi Valderrama DO [Family Provider] - in one week
Prescriptions:
New
aspirin 81 mg Tablet,Chewable
81 mg PO DAILY 30 Days Qty: 30 0RF
Continued
levothyroxine 25 mcg Tablet
25 mcg PO DAILY 30 Days Qty: 30 0RF
therapeutic multivitamin Tablet
1 tab PO DAILY
acetaminophen [Tylenol Extra Strength] 500 mg Tablet
1,000 mg PO BID
pantoprazole 20 mg Tablet,Delayed Release (Dr/Ec)
20 mg PO DAILY
loratadine [Claritin] 10 mg tablet
10 mg PO DAILY PRN (Reason: allergies)
metoprolol succinate 25 mg tablet extended release 24 hr
25 mg PO DAILY 30 Days Qty: 30 0RF
Changed
furosemide 40 mg tablet
40 mg PO DAILY Qty: 0 0RF
Discharge Orders:
Discharge Patient (As Directed); Ordered 03/24/24
Ordered By: Roldan Baker
Discharge Date and Time
Print Language: MONTENEGRIN
[2024-03-24 15:55] VITALS: BP 115/64
--- NOTE | 2024-03-24 16:35 | PTCARENOTE ---
Patient discharged to [facility], daughter refusing EMS transport and patient transported to facility by daughter. This RN removed patient's IV and called report to nurse manager estate Kathy at facility. Patient bathed with soap and water and changed
into clothes by daughter. Patient taken down to daughter's car at [facility] via staff escort and wheelchair, discharge packet handed to patient to give to facility upon arrival.
== END 2024-03-24 17:09 | DRG 602 ==
LOC: 2 NORTH 11:40
PROVIDERS: Clinical Nurse Specialist Family Health; Internal Medicine; Physician Assistant; ADMITTING PHYSICIAN Internal Medicine; ATTENDING PHYSICIAN Internal Medicine; EMERGENCY PHYSICIAN Emergency Medicine; FAMILY PHYSICIAN Family Medicine
DX: L03.317 Cellulitis of buttock (principal); L89.153 Pressure ulcer of sacral region, stage 3; L89.323 Pressure ulcer of left buttock, stage 3; L89.313 Pressure ulcer of right buttock, stage 3; I50.32 Chronic diastolic (congestive) heart failure; I13.0 Hypertensive heart and chronic kidney disease with heart failure and stage 1 through stage 4 chronic kidney disease, or unspecified chronic kidney disease; I48.19 Other persistent atrial fibrillation; E87.0 Hyperosmolality and hypernatremia; N39.0 Urinary tract infection, site not specified; N17.9 Acute kidney failure, unspecified; R21 Rash and other nonspecific skin eruption; R51.9 Headache, unspecified; E03.9 Hypothyroidism, unspecified; R62.7 Adult failure to thrive; E78.00 Pure hypercholesterolemia, unspecified; E11.22 Type 2 diabetes mellitus with diabetic chronic kidney disease; N18.32 Chronic kidney disease, stage 3b; L30.9 Dermatitis, unspecified; K21.9 Gastro-esophageal reflux disease without esophagitis; F03.90 Unspecified dementia, unspecified severity, without behavioral disturbance, psychotic disturbance, mood disturbance, and anxiety; E87.8 Other disorders of electrolyte and fluid balance, not elsewhere classified; M19.90 Unspecified osteoarthritis, unspecified site; R29.6 Repeated falls; J30.2 Other seasonal allergic rhinitis; K44.9 Diaphragmatic hernia without obstruction or gangrene; K57.10 Diverticulosis of small intestine without perforation or abscess without bleeding; Z60.8 Other problems related to social environment; Z96.641 Presence of right artificial hip joint; Z87.440 Personal history of urinary (tract) infections; Z68.27 Body mass index [BMI] 27.0-27.9, adult; Z87.891 Personal history of nicotine dependence; Z79.890 Hormone replacement therapy; Z79.01 Long term (current) use of anticoagulants; Z91.199 Patient's noncompliance with other medical treatment and regimen due to unspecified reason; Z75.1 Person awaiting admission to adequate facility elsewhere
CPT/HCPCS: 70450; 73502; 73564; 80048; 80053; 81003; 81015; 82607; 82728; 82746; 83540; 83550; 83605; 83735; 84100; 84443; 85025; 85027; 87070; 87086; 87147; 96360; 97116; 97162; 97166; 99285

== ENCOUNTER → 2024-05-09 14:01 | Outpatient (REF) | payer OTHER, SELFPAY | LOC: RAD 14:01 | PROVIDERS: ATTENDING PHYSICIAN Urology; FAMILY PHYSICIAN Nurse Practitioner Family | DX: R33.9 Retention of urine, unspecified (principal); N13.30 Unspecified hydronephrosis; N20.0 Calculus of kidney | CPT/HCPCS: 74176 ==